=== PATIENT | female | born 1930 | race Caucasian/White ===

== ENCOUNTER 2017-09-23 18:18 | Inpatient (IN) | payer MEDICARE, MEDICAID ==
[~2017-09-23] VITALS: Ht 162.6 cm; Wt 68.0 kg
[~2017-09-23 18:18] MED LIST: ACETAMINOPHEN325 M1 ORAL; AZOPT10 ML OP; BENAZEPRIL HCL20 MG ORAL; BETIMOL5 M2 OP; BYSTOLIC 2.5MG2.5 MG ORAL; CAPOTEN ORAL; METRONIDAZOLE500 MG ORAL; NEXIUM40 MG ORAL; VANCOMYCIN1 GM/2502 IVPB; XARELTO10 MG ORAL
[2017-09-23] MEDS ORDERED: ISOPTO CARPINE1 DRO2 OP (18:33)
[2017-09-23] MEDS ORDERED: MULTIVITAMINS1 EAC8 ORAL (18:33)
[2017-09-23] MEDS ORDERED: TRAVATAN Z5 ML OP (18:33)
[2017-09-23] MEDS ORDERED: KEPPRA500 MG ORAL ×2 (18:33→21:15)
[2017-09-23] MEDS ORDERED: BENAZEPRIL HCL10 MG ORAL (18:33)
[2017-09-23] MEDS ORDERED: LINZESS145 MCG PO ×2 (18:33→21:22)
[2017-09-23] MEDS ORDERED: BETIMOL5 M2 OP (18:33)
[2017-09-23] MEDS ORDERED: VOLTAREN100 G1 TP (18:33)
[2017-09-23] MEDS ORDERED: KEPPRA500 M4 ORAL (18:33)
[2017-09-23] MEDS ORDERED: AZOPT10 ML OP (18:33)
[2017-09-23] MEDS ORDERED: ALPHAGAN P5 M2 OP (18:33)
[2017-09-23] MEDS ORDERED: TWOCAL HN LIQU237 ML PO (18:33)
[2017-09-23] MEDS ORDERED: Sodium Chloride 500ML 500 ML IV ONE (18:34)
[2017-09-23] MEDS ORDERED: ACETAMINOPHEN325 M1 ORAL (18:34)
[2017-09-23 18:45] VITALS: BP 101/64
[2017-09-23] MEDS ORDERED: Solu-MEDROL 125mg Inj IVP ONE (18:45)
--- NOTE | 2017-09-23 19:13 | Emergency Room Report ---
History of Present Illness General Chief Complaint: Dyspnea/Respdistress Source: EMS Present Illness HPI 86-year-old female presents ED for evaluation. Patient brought in by EMS for shortness of breath at her assisted today. nursing staff noted the patient was wheezing. Was given breathing treatments. Per EMS O2 sats were initially low but improved with breathing treatments. Upon arrival patient is refusing all breathing treatments. O2 sats improved. Denies fevers or chills. Denies chest pain. No other aggravating relieving factors. Denies any other associated symptoms Allergies: Coded Allergies: No Known Allergies (Unverified , 03/14/15) Patient History Past Medical History: seizures Past Surgical History: none Pertinent Family History: none Social History: Denies: smoking, alcohol use, drug use Last Menstrual Period: Unk Now: No Immunizations: UTD Reviewed Nursing Documentation: PMH: Agreed, PSxH: Agreed Nursing Documentation-PMH Hx Hypertension: Yes Hx Cancer: No Hx Gastrointestinal Problems: No Hx Seizures: Yes Review of Systems All Other Systems: negative except mentioned in HPI Physical Exam Vital Signs Date Time Temp Pulse Resp B/P (MAP) Pulse Ox O2 Delivery O2 Flow Rate FiO2 09/23/17 18:15 84 18 101/64 96 Room Air 09/23/17 18:45 98.3 98.3 Sp02 EP Interpretation: reviewed, normal General Appearance: no apparent distress, alert, GCS 15, non-toxic Head: normocephalic Eyes: bilateral eye normal inspection, bilateral eye PERRL ENT: normal ENT inspection Neck: normal inspection Respiratory: chest non-tender, lungs clear, normal breath sounds, speaking full sentences Cardiovascular #1: regular rate, rhythm, no edema Gastrointestinal: normal bowel sounds, non tender, soft, non-distended, no guarding, no rebound Rectal: deferred Genitourinary: no CVA tenderness Musculoskeletal: normal inspection Neurologic: alert, oriented x3, responsive, motor strength/tone normal, sensory intact, speech normal Psychiatric: normal inspection Skin: normal inspection Lymphatic: normal inspection Medical Decision Making Diagnostic Impression: Primary Impression: Respiratory distress ER Course Hospital Course 86-year-old F presenting to ED with SOB. wheezing Differential diagnoses include: Pneumonia, CHF exacerbation, pneumothorax, fluid overload Clinical course Patient placed on stretcher. On media monitor with stable vitals. After initial history and physical, I ordered nebulizer treatments. I ordered labs, IV fluids, EKG, chest x-ray, blood cultures, UA. Labs - no leukocytosis noted, hemoglobin/hematocrit stable, electrolytes okay, lactate okay, troponins negative CXR - no infiltrates EKG - NSR, no acute ischemic changes interpreted by me Overall patient improved. However still hypoxic to 80s on room air. Requiring O2. Case discussed with Dr. Carvajal and he agreed to the patient to his service for further care and support I feel this is a highly complex case requiring extensive working including EKG/ Rhythm strip, Xray/CT/US, Blood/urine lab work, repeat exams while in ED, and administration of strong opiates/narcotics for pain control, admission to hospital or close patient follow up. Diagnosis -respiratory distress Patient admitted to telemetry in serious condition Labs Test 09/23/17 19:06 White Blood Count 7.0 K/UL (4.8-10.8) Red Blood Count 4.20 M/UL (4.20-5.40) Hemoglobin 12.9 G/DL (12.0-16.0) Hematocrit 39.2 % (37.0-47.0) Mean Corpuscular Volume 93 FL (80-99) Mean Corpuscular Hemoglobin 30.7 PG (27.0-31.0) Mean Corpuscular Hemoglobin Concent 32.9 G/DL (32.0-36.0) Red Cell Distribution Width 12.3 % (11.6-14.8) Platelet Count 242 K/UL (150-450) Mean Platelet Volume 6.0 FL (6.5-10.1) Neutrophils (%) (Auto) 43.6 % (45.0-75.0) Lymphocytes (%) (Auto) 32.3 % (20.0-45.0) Monocytes (%) (Auto) 19.6 % (1.0-10.0) Eosinophils (%) (Auto) 3.4 % (0.0-3.0) Basophils (%) (Auto) 1.0 % (0.0-2.0) Sodium Level 138 MMOL/L (136-145) Potassium Level 4.1 MMOL/L (3.5-5.1) Chloride Level 104 MMOL/L (98-107) Carbon Dioxide Level 27 MMOL/L (21-32) Anion Gap 7 mmol/L (5-15) Blood Urea Nitrogen 21 mg/dL (7-18) Creatinine 0.8 MG/DL (0.55-1.30) Estimat Glomerular Filtration Rate mL/min (>60) Glucose Level 107 MG/DL (74-106) Lactic Acid Level 1.00 mmol/L (0.66-2.22) Calcium Level 9.2 MG/DL (8.5-10.1) Total Bilirubin 0.3 MG/DL (0.2-1.0) Aspartate Amino Transf (AST/SGOT) 21 U/L (15-37) Alanine Aminotransferase (ALT/SGPT) 13 U/L (12-78) Alkaline Phosphatase 65 U/L (46-116) Total Creatine Kinase 81 U/L (26-308) Creatine Kinase MB 1.3 NG/ML (0.0-3.6) Creatine Kinase MB Relative Index 1.6 Troponin I 0.001 ng/mL (0.000-0.056) Pro-B-Type Natriuretic Peptide 67 pg/mL (0-125) Total Protein 6.9 G/DL (6.4-8.2) Albumin 3.1 G/DL (3.4-5.0) Globulin 3.8 g/dL Albumin/Globulin Ratio 0.8 (1.0-2.7) EKG Diagnostic Results Rate: normal Rhythm: NSR ST Segments: no acute changes ASA given to the pt in ED: No Rhythm Strip Diag. Results EP Interpretation: yes Rhythm: NSR, no PVC's, no ectopy Chest X-Ray Diagnostic Results Chest X-Ray Diagnostic Results : Chest X-Ray Ordered: Yes # of Views/Limited/Complete: 1 View Indication: Shortness of Breath EP Interpretation: Yes Interpretation: no consolidation, no effusion, no pneumothorax, no acute cardiopulmonary disease Impression: No acute disease Electronically Signed by: Electronically signed by Gustabo Vargas MD Last Vital Signs Date Time Temp Pulse Resp B/P (MAP) Pulse Ox O2 Delivery O2 Flow Rate FiO2 09/23/17 18:45 84 18 Room Air 09/23/17 18:45 98.3 101/64 96 98.3 Status: improved Disposition: ADMITTED INPATIENT Condition: Serious Referrals: KORI VÁSQUEZ (PCP) GUSTABO VARGAS M.D. Sep 23, 2017 19:13
[2017-09-23 19:24] LABS: EOSINOPHILS % (AUTO) 3.4 % (0.0-3.0); HEMATOCRIT 39.2 % (37.0-47.0); HEMOGLOBIN 12.9 G/DL (12.0-16.0); LYMPHOCYTES % (AUTO) 32.3 % (20.0-45.0); MEAN CORPUSCULAR VOLUME 93 FL (80-99); MONOCYTES % (AUTO) 19.6 % (1.0-10.0); NEUTROPHILS % (AUTO) 43.6 % (45.0-75.0); PLATELET COUNT 242 K/UL (150-450); RED CELL DISTRIBUTION WIDTH 12.3 % (11.6-14.8)
[2017-09-23 19:38] LABS: ANION GAP 7 mmol/L (5-15); BLOOD UREA NITROGEN 21 mg/dL (7-18); CALCIUM 9.2 MG/DL (8.5-10.1); CARBON DIOXIDE 27 MMOL/L (21-32); CHLORIDE 104 MMOL/L (98-107); CREATININE 0.8 MG/DL (0.55-1.30); POTASSIUM 4.1 MMOL/L (3.5-5.1); SODIUM 138 MMOL/L (136-145)
[2017-09-23 19:53] LABS: ALANINE AMINOTRANSFERASE 13 U/L (12-78); ALBUMIN 3.1 G/DL (3.4-5.0); ALBUMIN/GLOBULIN RATIO 0.8 (1.0-2.7); ALKALINE PHOSPHATASE 65 U/L (46-116); ASPARTATE AMINO TRANSFERASE 21 U/L (15-37); BILIRUBIN,TOTAL 0.3 MG/DL (0.2-1.0); CKMB 1.3 NG/ML (0.0-3.6); CREATINE KINASE 81 U/L (26-308)
[2017-09-23 21:00] VITALS: BP 101/55
[2017-09-23] MEDS ORDERED: Promethazine/Codeine 5ml UD ORAL PRN (21:00)
[2017-09-23] MEDS ORDERED: Ketorolac 30mg Inj IV PRN (21:00)
[2017-09-23] MEDS ORDERED: Nitroglycerin Subl 0.4mg tab SL PRN (21:00)
[2017-09-23] MEDS ORDERED: Morphine Sulfate 4mg/ml Inj IVP PRN (21:00)
[2017-09-23] MEDS ORDERED: LORazepam Inj 2mg/ml 1ml IV PRN (21:00)
[2017-09-23] MEDS ORDERED: Albuterol/Ipratropium 3ml neb HHN PRN (21:00)
[2017-09-23] MEDS ORDERED: Heparin 5000 units/ml inj SUBQ SCH (22:00)
[2017-09-23] MEDS ORDERED: Piperacillin/Tazobactam 2.25 GM in D5W 55 ML IV SCH (22:00)
[2017-09-23] MEDS: Theophylline ER 100mg ORAL SCH (23:11)
[2017-09-23] MEDS: Zoysn 3.37gm in NS 100ML IVPB SCH (23:12)
[2017-09-24] VITALS: BP 108/75
[2017-09-24] MEDS: Solu-MEDROL 125mg Inj IV SCH ×3 (00:51→12:14)
[2017-09-24 04:00] VITALS: BP 111/50
[2017-09-24] MEDS: Zoysn 3.37gm in NS 100ML IVPB SCH (05:40)
[2017-09-24 08:00] VITALS: BP 126/60
[2017-09-24] MEDS: Theophylline ER 100mg ORAL SCH ×2 (08:40→20:47)
[2017-09-24] MEDS: Benazepril 10mg tab ORAL SCH (08:40)
[2017-09-24] MEDS: Xarelto 15mg tab ORAL SCH (08:42)
--- NOTE | 2017-09-24 10:26 | Diagnostic Imaging Report ---
Indication: Shortness of breath Technique: XRAY Chest 1v Comparison: 11/14/2014 Findings: Limited exam with low lung volumes and obscuration of portions of the apices by patient's chin. Heart size and ultrasound contours appear stable. Aorta is tortuous. Apparent mild pulmonary vascular congestion, possibly artifactually exaggerated due to low lung volumes. There is blunting of the left costophrenic sulcus and streaky left basilar opacities. No pneumothorax. Osteopenia and degenerative change of the spine with compression deformities of lower thoracic/upper lumbar vertebral bodies -seen previously. IMPRESSION: Limited exam. Blunting of the left costophrenic sulcus and minimal streaky left basilar opacities. Findings may related to small pleural effusion and atelectasis. Possibility of developing pneumonia not entirely excluded. Correlation and follow-up exam recommended. Question mild central pulmonary vascular congestion, possibly exaggerated due to low lung volumes. Compression deformities of the lower thoracic/upper lumbar spine, grossly similar to prior exam. Lateral view or dedicated spine radiographs would provide a better assessment for interval change. Study obtained via the emergency department however patient admitted to the hospital at time of dictation of the final report.
[2017-09-24 12:01] VITALS: BP 122/76
--- NOTE | 2017-09-24 12:46 | Consultation ---
Consult Note Consult Note ID DIC # [id number] ANNIE POTTER M.D. Sep 24, 2017 12:46
--- NOTE | 2017-09-24 13:05 | Consultation ---
History of Present Illness General Date patient seen: Sep 23, 2017 Chief Complaint: Dyspnea/Respdistress Present Illness HPI 86-year-old female with hx of CVA, CHF, htn, right sided weakness presented to ED for evaluationof shortness of breath . the patient was wheezing. Was given breathing treatments. Per EMS O2 sats were initially low but improved with breathing treatments. Upon arrival ot ER patient is refusing all breathing treatments. O2 saturation improved. Denies fevers or chills. Denies chest pain. No other aggravating relieving factors. Denies any other associated symptoms Allergies: Coded Allergies: No Known Allergies (Unverified , 03/14/15) Medication History Scheduled Benazepril Hcl* (Benazepril Hcl*), 10 MG ORAL DAILY, (Reported) Brinzolamide (Azopt), 10 ML OP DAILY, (Reported) Bysto (Bystolic), 2.5 MG ORAL DAILY, (Reported) Levetiracetam (Keppra), 500 MG ORAL HS, (Reported) Levetiracetam (Keppra), 250 MG ORAL DAILY, (Reported) Linaclotide (Linzess), 145 MCG PO ACBREAKFAST, (Reported) Multivitamin With Minerals (Multivitamins With Minerals*), 1 TAB ORAL DAILY, ( Reported) Rivaroxaban (Xarelto*), 15 MG ORAL DAILY, (Reported) Scheduled PRN Acetaminophen* (Acetaminophen 325MG Tablet*), 650 MG ORAL Q6H PRN for Mild Pain/ Temp > 100.5 Miscellaneous Medications Brimonidine Tartrate (Alphagan P), 5 ML OP, (Reported) Diclofenac Sodium (Voltaren), 100 GM TP, (Reported) Nut.sup,Spec.frm,L-Fr,Iron/Fos (Twocal Hn Liquid), 237 ML PO, (Reported) Pilocarpine (Pilocarpine HCl), 1 DROP OP, (Reported) Timolol (Betimol), 5 ML OP, (Reported) Travoprost (Travatan Z), 5 ML OP, (Reported) Discontinued Medications Captopril (Captopril), 25 MG ORAL Q6HR PRN for To Patient Comfort Discontinued Reason: Pt stopped taking med Esomeprazole Magnesium (Nexium), 40 MG ORAL DAILY, (Reported) Discontinued Reason: Pt stopped taking med Metronidazole* (Flagyl*), 500 MG ORAL EVERY 8 HOURS, (Reported) Discontinued Reason: Pt stopped taking med Vancomycin Hcl/D5w (Vancomycin-D5w 1 G/250 Ml), 1.25 GM IVPB Q24H, (Reported) Discontinued Reason: Pt stopped taking med Patient History Healthcare decision maker N Resuscitation status Full Code Advanced Directive on File No Past Medical/Surgical History Past Medical/Surgical History: (1) Hypertension (2) Cerebrovascular accident (CVA) Review of Systems Respiratory: Reports: shortness of breath, wheezing All Other Systems: negative except mentioned in HPI Physical Exam General Appearance: WD/WN Lines, tubes and drains: peripheral HEENT: normocephalic, atraumatic Neck: non-tender, normal alignment Respiratory/Chest: chest wall non-tender, lungs clear, expiratory wheezing Breasts: no masses Cardiovascular/Chest: normal peripheral pulses Genitourinary/Rectal: normal genital exam Extremities: normal range of motion, normal inspection, non-pitting Last 24 Hour Vital Signs Date Time Temp Pulse Resp B/P (MAP) Pulse Ox O2 Delivery O2 Flow Rate FiO2 09/24/17 12:01 96.6 63 18 122/76 96 Nasal Cannula 2.0 96.6 09/24/17 12:00 62 09/24/17 08:40 126/60 09/24/17 08:00 96.1 69 18 126/60 95 Nasal Cannula 2.0 96.1 09/24/17 08:00 66 09/24/17 04:00 97.3 64 18 111/50 95 Nasal Cannula 2.0 97.3 09/24/17 04:00 59 09/24/17 00:00 97.5 61 12 108/75 95 Nasal Cannula 2.0 97.5 09/24/17 00:00 66 09/23/17 21:30 98.3 72 21 101/55 94 Nasal Cannula 2.0 98.3 09/23/17 21:00 72 21 101/55 94 Nasal Cannula 2.0 09/23/17 18:45 84 18 Room Air 09/23/17 18:45 98.3 18 101/64 96 Room Air 98.3 09/23/17 18:15 84 18 101/64 96 Room Air Intake and Output 09/23/17 09/24/17 19:00 07:00 Intake Total 0 ml 78 ml Balance 0 ml 78 ml Intake Oral 0 ml 0 ml IV Total 78 ml Laboratory Tests Test 09/23/17 19:06 White Blood Count 7.0 K/UL (4.8-10.8) Red Blood Count 4.20 M/UL (4.20-5.40) Hemoglobin 12.9 G/DL (12.0-16.0) Hematocrit 39.2 % (37.0-47.0) Mean Corpuscular Volume 93 FL (80-99) Mean Corpuscular Hemoglobin 30.7 PG (27.0-31.0) Mean Corpuscular Hemoglobin Concent 32.9 G/DL (32.0-36.0) Red Cell Distribution Width 12.3 % (11.6-14.8) Platelet Count 242 K/UL (150-450) Mean Platelet Volume 6.0 FL (6.5-10.1) L Neutrophils (%) (Auto) 43.6 % (45.0-75.0) L Lymphocytes (%) (Auto) 32.3 % (20.0-45.0) Monocytes (%) (Auto) 19.6 % (1.0-10.0) H Eosinophils (%) (Auto) 3.4 % (0.0-3.0) H Basophils (%) (Auto) 1.0 % (0.0-2.0) Sodium Level 138 MMOL/L (136-145) Potassium Level 4.1 MMOL/L (3.5-5.1) Chloride Level 104 MMOL/L (98-107) Carbon Dioxide Level 27 MMOL/L (21-32) Anion Gap 7 mmol/L (5-15) Blood Urea Nitrogen 21 mg/dL (7-18) H Creatinine 0.8 MG/DL (0.55-1.30) Estimat Glomerular Filtration Rate mL/min (>60) Glucose Level 107 MG/DL (74-106) H Lactic Acid Level 1.00 mmol/L (0.66-2.22) Calcium Level 9.2 MG/DL (8.5-10.1) Total Bilirubin 0.3 MG/DL (0.2-1.0) Aspartate Amino Transf (AST/SGOT) 21 U/L (15-37) Alanine Aminotransferase (ALT/SGPT) 13 U/L (12-78) Alkaline Phosphatase 65 U/L (46-116) Total Creatine Kinase 81 U/L (26-308) Creatine Kinase MB 1.3 NG/ML (0.0-3.6) Creatine Kinase MB Relative Index 1.6 Troponin I 0.001 ng/mL (0.000-0.056) Pro-B-Type Natriuretic Peptide 67 pg/mL (0-125) Total Protein 6.9 G/DL (6.4-8.2) Albumin 3.1 G/DL (3.4-5.0) L Globulin 3.8 g/dL Albumin/Globulin Ratio 0.8 (1.0-2.7) L Microbiology Date/Time Source Procedure Growth Status 09/23/17 19:27 Nasal Nares Influenza Types A,B Antigen ([facility]) - Final Complete Height (Feet): 5 Height (Inches): 4.00 Weight (Pounds): 180 Medications Current Medications Medications (Trade) Dose Ordered Sig/Carmen Route PRN Reason Start Time Stop Time Status Last Admin Dose Admin Albuterol/ Ipratropium (Albuterol/ Ipratropium) 3 ml Q4H PRN HHN dyspnea 09/23/17 21:00 09/28/17 20:59 Benazepril HCl (Lotensin) 10 mg DAILY ORAL 09/24/17 09:00 10/24/17 08:59 09/24/17 08:40 Dextrose (Dextrose 50%) STAT PRN IV Hypoglycemia 09/23/17 21:00 10/23/17 20:59 Ketorolac Tromethamine (Toradol 30mg) 30 mg Q8H PRN IV moderate pain 4-6 09/23/17 21:00 09/28/17 20:59 Levetiracetam (Keppra) 250 mg DAILY ORAL 09/24/17 09:00 10/24/17 08:59 09/24/17 08:41 Levetiracetam (Keppra) 500 mg QHS ORAL 09/23/17 22:30 10/23/17 22:29 09/23/17 23:11 Lorazepam (Ativan 2mg/ml 1ml) 0.5 mg Q4H PRN IV For Anxiety 09/23/17 21:00 09/30/17 20:59 Methylprednisolone Sodium Succinate (Solu-MEDROL) 60 mg EVERY 6 HOURS IV 09/24/17 00:30 10/24/17 00:29 09/24/17 12:14 Morphine Sulfate (Morphine Sulfate) 2 mg Q4H PRN IVP severe pain 7-10 09/23/17 21:00 09/30/17 20:59 Nitroglycerin (Ntg) 0.4 mg Q5M X 3 DOSES PRN SL Prn Chest Pain 09/23/17 21:00 10/23/17 20:59 Ondansetron HCl (Zofran) 4 mg Q6H PRN IVP Nausea & Vomiting 09/23/17 21:00 10/23/17 20:59 Oseltamivir Phosphate (Tamiflu) 30 mg Q12HR ORAL 09/23/17 22:30 09/28/17 22:29 09/24/17 08:41 Piperacillin Sod/ Tazobactam Sod 3.375 gm/Sodium Chloride 110 ml @ 27.5 mls/hr EVERY 8 HOURS IVPB 09/23/17 22:30 09/28/17 22:29 09/24/17 05:40 Promethazine HCl/ Codeine (Phenergan with Codeine) 5 ml Q6H PRN ORAL cough 09/23/17 21:00 10/23/17 20:59 Rivaroxaban (Xarelto) 15 mg DAILY ORAL 09/24/17 09:00 10/24/17 08:59 09/24/17 08:42 Temazepam (Restoril) 15 mg HSPRN PRN ORAL Insomnia 09/23/17 21:00 09/30/17 20:59 Theophylline (Danilo-Dur) 100 mg EVERY 12 HOURS ORAL 09/23/17 22:00 10/23/17 21:59 09/24/17 08:40 Assessment/Plan Problem List: (1) Respiratory distress ICD Codes: R06.03 - Acute respiratory distress SNOMED: 237857986 (2) Bronchitis ICD Codes: J40 - Bronchitis, not specified as acute or chronic SNOMED: 57768893 (3) Viral syndrome ICD Codes: B34.9 - Viral infection, unspecified SNOMED: 71488017, 788542494 (4) Hypertension ICD Codes: I10 - Essential (primary) hypertension SNOMED: 58653054 (5) Cerebrovascular accident (CVA) ICD Codes: I63.9 - Cerebral infarction, unspecified SNOMED: 565103935 Assessment/Plan respiratory treatment check sputum echo cardioac evaluation CXR was negative short course of steroids ID evaluation. MATTHEW AARON Sep 24, 2017 13:05
--- NOTE | 2017-09-24 13:07 | Pulmonology Progress Note ---
Assessment/Plan Problems: (1) Respiratory distress (2) Bronchitis (3) Viral syndrome (4) Hypertension (5) Cerebrovascular accident (CVA) Assessment/Plan improving afebrile check sputum, echo, labs taper sterids continue abx ID evaluation appreciated. Subjective ROS Limited/Unobtainable: No Interval Events: feeling better Constitutional: Reports: no symptoms HEENT: Repors: no symptoms Respiratory: Reports: no symptoms Allergies: Coded Allergies: No Known Allergies (Unverified , 03/14/15) Objective Last 24 Hour Vital Signs Date Time Temp Pulse Resp B/P (MAP) Pulse Ox O2 Delivery O2 Flow Rate FiO2 09/24/17 12:01 96.6 63 18 122/76 96 Nasal Cannula 2.0 96.6 09/24/17 12:00 62 09/24/17 08:40 126/60 09/24/17 08:00 96.1 69 18 126/60 95 Nasal Cannula 2.0 96.1 09/24/17 08:00 66 09/24/17 04:00 97.3 64 18 111/50 95 Nasal Cannula 2.0 97.3 09/24/17 04:00 59 09/24/17 00:00 97.5 61 12 108/75 95 Nasal Cannula 2.0 97.5 09/24/17 00:00 66 09/23/17 21:30 98.3 72 21 101/55 94 Nasal Cannula 2.0 98.3 09/23/17 21:00 72 21 101/55 94 Nasal Cannula 2.0 09/23/17 18:45 84 18 Room Air 09/23/17 18:45 98.3 18 101/64 96 Room Air 98.3 09/23/17 18:15 84 18 101/64 96 Room Air Intake and Output 09/23/17 09/24/17 19:00 07:00 Intake Total 0 ml 78 ml Balance 0 ml 78 ml Intake Oral 0 ml 0 ml IV Total 78 ml Objective General Appearance: WD/WN Lines, tubes and drains: peripheral HEENT: normocephalic, atraumatic Neck: non-tender, normal alignment Respiratory/Chest: chest wall non-tender, lungs clear, expiratory wheezing Breasts: no masses Cardiovascular/Chest: normal peripheral pulses Genitourinary/Rectal: normal genital exam Extremities: normal range of motion, normal inspection, non-pitting Microbiology Date/Time Source Procedure Growth Status 09/23/17 19:27 Nasal Nares Influenza Types A,B Antigen ([facility]) - Final Complete Laboratory Tests 09/23/17 19:06: White Blood Count 7.0, Red Blood Count 4.20, Hemoglobin 12.9, Hematocrit 39.2, Mean Corpuscular Volume 93, Mean Corpuscular Hemoglobin 30.7, Mean Corpuscular Hemoglobin Concent 32.9, Red Cell Distribution Width 12.3, Platelet Count 242, Mean Platelet Volume 6.0L, Neutrophils (%) (Auto) 43.6L, Lymphocytes (%) (Auto) 32.3, Monocytes (%) (Auto) 19.6H, Eosinophils (%) (Auto) 3.4H, Basophils (%) ( Auto) 1.0, Sodium Level 138, Potassium Level 4.1, Chloride Level 104, Carbon Dioxide Level 27, Anion Gap 7, Blood Urea Nitrogen 21H, Creatinine 0.8, Estimat Glomerular Filtration Rate , Glucose Level 107H, Lactic Acid Level 1.00, Calcium Level 9.2, Total Bilirubin 0.3, Aspartate Amino Transf (AST/SGOT) 21, Alanine Aminotransferase (ALT/SGPT) 13, Alkaline Phosphatase 65, Total Creatine Kinase 81, Creatine Kinase MB 1.3, Creatine Kinase MB Relative Index 1.6, Troponin I 0.001, Pro-B-Type Natriuretic Peptide 67, Total Protein 6.9, Albumin 3.1L, Globulin 3.8, Albumin/Globulin Ratio 0.8L Current Medications Medications (Trade) Dose Ordered Sig/Carmen Route PRN Reason Start Time Stop Time Status Last Admin Dose Admin Albuterol/ Ipratropium (Albuterol/ Ipratropium) 3 ml Q4H PRN HHN dyspnea 09/23/17 21:00 09/28/17 20:59 Benazepril HCl (Lotensin) 10 mg DAILY ORAL 09/24/17 09:00 10/24/17 08:59 09/24/17 08:40 Dextrose (Dextrose 50%) STAT PRN IV Hypoglycemia 09/23/17 21:00 10/23/17 20:59 Ketorolac Tromethamine (Toradol 30mg) 30 mg Q8H PRN IV moderate pain 4-6 09/23/17 21:00 09/28/17 20:59 Levetiracetam (Keppra) 250 mg DAILY ORAL 09/24/17 09:00 10/24/17 08:59 09/24/17 08:41 Levetiracetam (Keppra) 500 mg QHS ORAL 09/23/17 22:30 10/23/17 22:29 09/23/17 23:11 Lorazepam (Ativan 2mg/ml 1ml) 0.5 mg Q4H PRN IV For Anxiety 09/23/17 21:00 09/30/17 20:59 Methylprednisolone Sodium Succinate (Solu-MEDROL) 60 mg EVERY 6 HOURS IV 09/24/17 00:30 10/24/17 00:29 09/24/17 12:14 Morphine Sulfate (Morphine Sulfate) 2 mg Q4H PRN IVP severe pain 7-10 09/23/17 21:00 09/30/17 20:59 Nitroglycerin (Ntg) 0.4 mg Q5M X 3 DOSES PRN SL Prn Chest Pain 09/23/17 21:00 10/23/17 20:59 Ondansetron HCl (Zofran) 4 mg Q6H PRN IVP Nausea & Vomiting 09/23/17 21:00 10/23/17 20:59 Oseltamivir Phosphate (Tamiflu) 30 mg Q12HR ORAL 09/23/17 22:30 09/28/17 22:29 09/24/17 08:41 Piperacillin Sod/ Tazobactam Sod 3.375 gm/Sodium Chloride 110 ml @ 27.5 mls/hr EVERY 8 HOURS IVPB 09/23/17 22:30 09/28/17 22:29 09/24/17 05:40 Promethazine HCl/ Codeine (Phenergan with Codeine) 5 ml Q6H PRN ORAL cough 09/23/17 21:00 10/23/17 20:59 Rivaroxaban (Xarelto) 15 mg DAILY ORAL 09/24/17 09:00 10/24/17 08:59 09/24/17 08:42 Temazepam (Restoril) 15 mg HSPRN PRN ORAL Insomnia 09/23/17 21:00 09/30/17 20:59 Theophylline (Danilo-Dur) 100 mg EVERY 12 HOURS ORAL 09/23/17 22:00 10/23/17 21:59 09/24/17 08:40 MATTHEW AARON Sep 24, 2017 13:06
--- NOTE | 2017-09-24 13:45 | Cardiology Report ---
APPROVED REPORT EXAM: Two-dimensional and M-mode echocardiogram with Doppler and color Doppler. INDICATION LV FUNCTION M-Mode DIMENSIONS IVSd1.2 (0.7-1.1cm)Left Atrium (MM)3.3 (1.6-4.0cm) LVDd3.6 (3.5-5.6cm)Aortic Root3.3 (2.0-3.7cm) PWd1.2 (0.7-1.1cm)Aortic Cusp Exc.1.9 (1.5-2.0cm) IVSs1.7 cm LVDs2.3 (2.5-4.0cm) PWs1.3 cm Technically difficult study due to patient resistance. Normal left ventricular chamber size, systolic function and wall motion. Left ventricular ejection fraction estimated to be 60-65%. Mild left ventricular hypertrophy by 2-D. No evidence of pericardial effusion. All other cardiac chamber sizes are within normal limits. Focal aortic valve sclerosis with adequate cusp excursion, Thickened mitral valve leaflets with normal excursion. Mitral annulus and aortic root calcification. Normal pulmonic valve structure. Normal tricuspid valve structure. IVC dilated at 2.4 cm with physiologic collapse suggestive of increased RA pressure. A color flow and spectral Doppler study was performed and revealed: No aortic regurgitation. Trace mitral regurgitation. Mitral diastolic velocities suggest reduced left ventricular relaxation c/w mild LV diastolic dysfunction (Grade I ). Trace to Mild tricuspid regurgitation. Tricuspid systolic velocities suggests peak right ventricular systolic pressure of 28 mmHg, No Pulmonic regurgitation present.
--- NOTE | 2017-09-24 15:06 | Cardiology Report ---
APPROVED REPORT EKG Measurement Heart [id number] Normal sinus rhythm Normal ECG
[2017-09-24 16:00] VITALS: BP 108/66
--- NOTE | 2017-09-24 19:40 | Cardiology Progress Note ---
Assessment/Plan Assessment/Plan [id number] no evidence for chf or coronary syndrome trop in am to snf soon from cardiac veiw point Objective Last 24 Hour Vital Signs Date Time Temp Pulse Resp B/P (MAP) Pulse Ox O2 Delivery O2 Flow Rate FiO2 09/24/17 16:00 65 09/24/17 16:00 97.7 62 18 108/66 93 Room Air 97.7 09/24/17 12:01 96.6 63 18 122/76 96 Nasal Cannula 2.0 96.6 09/24/17 12:00 62 09/24/17 08:40 126/60 09/24/17 08:00 96.1 69 18 126/60 95 Nasal Cannula 2.0 96.1 09/24/17 08:00 66 09/24/17 04:00 97.3 64 18 111/50 95 Nasal Cannula 2.0 97.3 09/24/17 04:00 59 09/24/17 00:00 97.5 61 12 108/75 95 Nasal Cannula 2.0 97.5 09/24/17 00:00 66 09/23/17 21:30 98.3 72 21 101/55 94 Nasal Cannula 2.0 98.3 09/23/17 21:00 72 21 101/55 94 Nasal Cannula 2.0 Intake and Output 09/23/17 09/24/17 19:00 07:00 Intake Total 0 ml 78 ml Balance 0 ml 78 ml Intake Oral 0 ml 0 ml IV Total 78 ml Microbiology Date/Time Source Procedure Growth Status 09/23/17 19:27 Nasal Nares Influenza Types A,B Antigen ([facility]) - Final Complete BENOIT SUTTON Sep 24, 2017 19:40
[2017-09-24 20:00] VITALS: BP 109/68
--- NOTE | 2017-09-24 21:45 | History and Physical Report ---
DATE OF ADMISSION: 09/23/2017 CHIEF COMPLAINT: The patient is an 86-year-old white female, Ecuadorean speaking, who presents with a chief complaint of shortness of breath. HISTORY OF PRESENT ILLNESS: The patient herself is mostly Ecuadorean speaking. The patient's is at the bedside. 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 The patient is a resident of [facility]. The patient began to experience cough, fever, and, chills on 09/23/2017. The patient was transported to [facility]. The patient was admitted for cough and fever to rule out pneumonia. PAST MEDICAL HISTORY: Significant for, 1. Glaucoma. 2. Seizure disorder. 3. Hypertension. 4. Right lower extremity deep venous thrombosis. PAST SURGICAL HISTORY: Significant for exploratory laparotomy for unknown reason. CURRENT MEDICATIONS: 1. Keppra 250 mg p.o. daily. 2. Keppra 500 mg p.o. at bedtime. 3. Pilocarpine 2% 1 drop to both eyes daily. 4. Alphagan 0.15% 1 drop in both eyes daily. 5. Azopt 1% one drop to both eyes daily. 6. Travatan 0.004% both eyes daily. 7. Timolol 0.5% to both eyes daily. 8. Xarelto 15 mg p.o. daily. 9. Benazepril 10 mg p.o. daily. ALLERGIES: No known drug allergies. SOCIAL HISTORY: The patient lives at [facility]. The patient is . The patient's is at the bedside. The patient denies tobacco or alcohol use. REVIEW OF SYSTEMS: CONSTITUTIONAL: The patient denies weight loss or weight gain. The patient does complain of subjective fevers and chills. HEENT: The patient denies ear or throat pain. The patient denies headache. CARDIOVASCULAR: The patient denies palpitations or chest pain. CHEST: The patient complains of cough as above. The patient denies wheeze. ABDOMEN: The patient denies nausea, vomiting, diarrhea, or constipation. GENITOURINARY: The patient denies dysuria or increased frequency of urination. NEUROMUSCULAR: The patient denies generalized weakness. The patient does have a history of seizures. PHYSICAL EXAMINATION: VITAL SIGNS: Temperature 97.5, respirations 12, pulse 61 to 66, and blood pressure 108/75. GENERAL: The patient is a well-developed and well-nourished white female, in no apparent distress. HEENT: Eyes, pupils equal and responsive to light and accommodation. Extraocular movements are intact. NECK: Supple without lymphadenopathy. CHEST: Few wheezes bilaterally. Otherwise, clear to auscultation without wheezes or rales. CARDIOVASCULAR: Regular rhythm and rate. S1 and S2 are normal without murmurs, rubs, or gallops. ABDOMEN: Soft, nontender, and nondistended. Positive bowel sounds. No evidence of hepatosplenomegaly. Currently, no rebound or guarding noted. EXTREMITIES: Negative for clubbing, cyanosis, or edema. RECTAL/GENITAL: Refused. NEUROLOGIC: Cranial nerves II through XII are grossly intact without focal deficits. Motor strength is 5/5 bilaterally. Deep tendon reflexes are 2+ plantar. LABORATORY STUDIES: WBC 7.3, hemoglobin 12.9, hematocrit 39.2, and platelets 242,000. Sodium 138, potassium 4.1, chloride 104, CO2 27, BUN 21, creatinine 0.8, and glucose 107. Chest x-ray revealed blunting of the left costophrenic sulcus with streaky left basilar opacities. ASSESSMENT: This is an 86-year-old white female. 1. Shortness of breath. 2. Left basilar pneumonia. 3. Seizure disorder. 4. Hypertension. 5. Glaucoma. 6. History of right lower extremity deep venous thrombosis. TREATMENT: 1. Left pneumonia/shortness of breath. A Pulmonary consultation was obtained with Dr. Bipin Arcos. The patient has been placed empirically on intravenous Zosyn. We will follow recommendations of Pulmonary. 2. Seizure disorder. Continue Keppra as above. 3. Hypertension. Continue benazepril as above. 4. Glaucoma. Continue all eye drops as ordered. 5. History of right lower extremity deep venous thrombosis. Continue Xarelto as above. Esequiel Mcleod M.D. DR: CATHY JOB#: [id number] CC:
--- NOTE | 2017-09-24 22:15 | Consultation ---
DATE OF CONSULTATION: 09/24/2017 INFECTIOUS DISEASES CONSULTATION CONSULTING PHYSICIAN: Pranav Goel M.D. REQUESTING PHYSICIAN: Esequiel Mcleod M.D. REASON FOR CONSULTATION: Evaluation of the patient for pneumonia, antibiotics management. HISTORY OF PRESENT ILLNESS: The patient is an 86-year-old female who lives in assisted living [place] [facility] who was transferred to this medical center for cough and shortness of breath. The patient was admitted with impression of pneumonia. An Infectious Diseases consultation has been requested for further evaluation of the patient's antibiotic management. PAST MEDICAL HISTORY: 1. Seizure disorder. 2. CVA with right-sided weakness. 3. CHF. 4. Hyperlipidemia. 5. Hypertension. 6. History of right shoulder fracture. MEDICATIONS: Solu-Medrol, Tamiflu and Zosyn. ALLERGIES: No known drug allergies. SOCIAL HISTORY: No history of alcohol, drug abuse, or smoking. FAMILY HISTORY: Not contributing. REVIEW OF SYSTEMS: HEENT: No recent change in vision or hearing. PULMONARY: Cough with sputum production. CARDIOVASCULAR: No chest pain or palpitation. GASTROINTESTINAL/ABDOMEN: No nausea or vomiting. GENITOURINARY: No dysuria. MUSCULOSKELETAL: No pain in extremity. PHYSICAL EXAMINATION: VITAL SIGNS: Temperature 96.6 degrees, pulse 86, respiratory rate 18, and blood pressure 123/76. HEENT: No conjunctiva. No icterus. NECK: No lymphadenopathy. CHEST: Coarse breathing sounds. HEART: S1 and S2. ABDOMEN: Soft and nontender. EXTREMITIES: No cyanosis . NEUROLOGIC: Awake. LABORATORY AND DIAGNOSTIC DATA: White blood cells 7, hemoglobin 12 and platelets 242. UA shows 10 to 15 red blood cells and 0 to 2 white blood cells. BUN 31 and creatinine 0.8. ALT, AST, and alkaline phosphatase are unremarkable. Influenza A and B negative. Chest x-ray showed blunting of left costophrenic sulcus and streaking of left basilar opacities. ASSESSMENT: The patient is an 86-year-old female with; 1. Cough, shortness of breath, pneumonia/bronchitis. 2. Afebrile. 3. Normal white blood cells. Influenza A/B negative. PLAN: 1. We will change antibiotics to Levaquin. 2. Monitor CBC. 3. Monitor BMP. 4. Monitor cultures (blood, sputum). 5. Monitor chest x-ray. 6. Based on the patient's clinical course and laboratories, we will do further recommendations. Thank you, for following me to participate in the care of this patient. I will follow the patient with you during this hospitalization. Pranav Goel M.D. DR: MARCIANO JOB#: [id number] CC:
[2017-09-25] VITALS: BP 111/62
--- NOTE | 2017-09-25 01:30 | Consultation ---
DATE OF CONSULTATION: 09/24/2017 CARDIOLOGY CONSULTATION CONSULTING PHYSICIAN: Anurag Ward M.D. REFERRING PHYSICIAN: Agus Carvajal M.D. REASON FOR REFERRAL: Shortness of breath. 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 She was brought to the emergency room at [facility] because of complaints about shortness of breath oxygen saturation, which responded to breathing treatments provided by the paramedics. Subsequently, when she arrived to the emergency room here at [place], she refused all breathing treatments. Oxygen saturations were fine. She is a very poor historian, therefore, information is very limited and is obtained from review of the patient's present chart and [facility] records. She does not appear to have any chest pains on questioning or abdominal pain or left arm pain or back pain or shortness of breath. PAST MEDICAL HISTORY: Positive for history of hypertension, osteoporosis, degenerative spine disease, history of meningioma that was resected in 2014, complicated right lower extremity deep venous thrombosis, underwent IVC placement and apparently IVC filter may have been removed subsequently, history of pneumonia, history of urinary tract infections, systemic hypertension, obesity, hyperlipidemia, osteoporosis, degenerative disk disease, chronic bilateral lower extremity, lymphedema, and dementia. SOCIAL HISTORY: The patient resides at a convalescent facility. 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 She is from [facility]. No history of alcohol or drugs or smoking. REVIEW OF SYSTEMS: GASTROINTESTINAL: She denies any nausea, vomiting, or diarrhea. GENITOURINARY: Negative. PULMONARY: She denies. CONSTITUTIONAL: She denies. CARDIAC: As mentioned in the HPI. PHYSICAL EXAMINATION: GENERAL: Shows her to be an elderly female, overweight, and in no respiratory distress. NECK: Supple. She is lying down actually flat. LUNGS: Clear to auscultation and percussion. CARDIAC: S1 is normal. S2 is normal. Regular rate and rhythm. No heaves, thrills, or gallops noted. ABDOMEN: Soft and nontender. Positive bowel sounds. EXTREMITIES: There is no clubbing, cyanosis, nor is there any edema. NEUROLOGICAL: She is awake, alert, responsive, in no respiratory distress. LABORATORY AND DIAGNOSTIC DATA: White count of 7, hemoglobin 12.9, and platelet count is 242,000. Sodium is 138, potassium 4.1, chloride 104, bicarbonate 27, BUN 21, creatinine 0.8, and glucose of 107. Lactic acid of 1.0. Troponin of 0.001. ProBNP was only 67. Albumin of 3.1. No other abnormalities noted. X-rays performed in the emergency room show blunting of left costophrenic sulcus, minimal streaky left basilar opacity, findings may be related to small pleural effusion and atelectasis. Mild central pulmonary vascular congestion possibly exaggerated due to low lung volumes. Deformities of thoracic and upper lumbar spine similar to prior studies. The patient's electrocardiogram performed by the paramedics shows normal sinus rhythm and normal QRS axis. No ST or T-wave abnormalities of significant degrees. ASSESSMENT AND PLAN: 1. Questionable bronchospasm from the convalescent facility seems to have resolved. 2. Obesity. 3. History of deep venous thrombosis post meningioma resection. 4. History of meningioma that was resected. 5. Hypertension. 6. Hyperlipidemia. 7. Dementia. Dr. Carvajal, this patient was seen in cardiac consultation. The patient's cardiac enzymes are negative so far. ProBNP was normal, which speaks against the evidence of congestive heart failure. She has had an echocardiogram that was performed today. The echocardiogram shows normal left ventricular systolic function with ejection fraction of 60% to 65%. Mild diastolic relaxation abnormality. No valvular dysfunction has been noted on that EKG. She has no signs or symptoms of congestive heart failure or coronary syndrome on her examination at this time. She is refusing oxygen even if that is provided by the nursing staff. She has no further indications for any evaluation from the cardiac point of view although repeat cardiac enzymes will be ordered for tomorrow morning. Her blood pressure is 108/66 with a heart rate of 62 and temperature 97 degrees, and she is anywhere between 93% on room air and 96% on 2 L nasal cannula oxygenating. Remainder of the workup as per Dr. Arcos, who is seeing the patient in Pulmonary consultation. Anurag Ward M.D. DR: MARILEE JOB#: [id number] CC:
[2017-09-25 04:00] VITALS: BP 114/61
[2017-09-25 07:18] LABS: BASOPHILS % (AUTO) 0.3 % (0.0-2.0); EOSINOPHILS % (AUTO) 0.1 % (0.0-3.0); HEMATOCRIT 34.5 % (37.0-47.0); HEMOGLOBIN 11.7 G/DL (12.0-16.0); LYMPHOCYTES % (AUTO) 21.3 % (20.0-45.0); MEAN CORPUSCULAR VOLUME 93 FL (80-99); MONOCYTES % (AUTO) 13.7 % (1.0-10.0); NEUTROPHILS % (AUTO) 64.7 % (45.0-75.0); PLATELET COUNT 256 K/UL (150-450); RED BLOOD COUNT 3.71 M/UL (4.20-5.40); RED CELL DISTRIBUTION WIDTH 12.2 % (11.6-14.8); WHITE BLOOD COUNT 9.8 K/UL (4.8-10.8)
[2017-09-25 07:23] LABS: ALANINE AMINOTRANSFERASE 18 U/L (12-78); ALKALINE PHOSPHATASE 60 U/L (46-116); ANION GAP 7 mmol/L (5-15); ASPARTATE AMINO TRANSFERASE 15 U/L (15-37); BILIRUBIN,TOTAL 0.3 MG/DL (0.2-1.0); BLOOD UREA NITROGEN 28 mg/dL (7-18); CALCIUM 8.9 MG/DL (8.5-10.1); CARBON DIOXIDE 28 MMOL/L (21-32); CHLORIDE 107 MMOL/L (98-107); CREATININE 0.8 MG/DL (0.55-1.30); POTASSIUM 3.8 MMOL/L (3.5-5.1); SODIUM 142 MMOL/L (136-145)
[2017-09-25 08:00] VITALS: BP 137/85
[2017-09-25] MEDS: Benazepril 10mg tab ORAL SCH (08:32)
[2017-09-25] MEDS: Theophylline ER 100mg ORAL SCH ×2 (08:32→20:27)
[2017-09-25] MEDS: Xarelto 15mg tab ORAL SCH (08:33)
[2017-09-25] MEDS ORDERED: Solu-MEDROL 125mg Inj IV SCH (09:00)
--- NOTE | 2017-09-25 11:47 | Infectious Diseases Prog Note ---
Assessment/Plan Assessment/Plan ASSESSMENT: The patient is an 86-year-old female with; Cough, shortness of breath, pneumonia/bronchitis. Afebrile. Normal white blood cells Influenza A/B negative. Influenza A and B negative Chest x-ray: left costophrenic sulcus and streaking of left basilar opacities. Seizure disorder. CVA with right-sided weakness. CHF. Hyperlipidemia. Hypertension. History of right shoulder fracture PLAN: cont Levaquin d# 2 Monitor CBC Monitor BMP. Monitor cultures (blood, sputum). Monitor chest x-ray. Subjective Allergies: Coded Allergies: No Known Allergies (Unverified , 03/14/15) Subjective comfortable Objective Vital Signs Last 24 Hour Vital Signs Date Time Temp Pulse Resp B/P (MAP) Pulse Ox O2 Delivery O2 Flow Rate FiO2 09/25/17 08:32 137/85 09/25/17 08:03 72 18 Room Air 09/25/17 08:00 97.2 75 17 137/85 98 Room Air 97.2 09/25/17 05:20 69 09/25/17 04:00 97.3 62 21 114/61 94 Room Air 97.3 09/25/17 00:00 65 09/25/17 00:00 97.0 66 20 111/62 95 Room Air 97.0 09/24/17 20:00 71 09/24/17 20:00 97.0 71 20 109/68 94 Room Air 97.0 09/24/17 20:00 66 20 Room Air 09/24/17 16:00 65 09/24/17 16:00 97.7 62 18 108/66 93 Room Air 97.7 09/24/17 12:01 96.6 63 18 122/76 96 Nasal Cannula 2.0 96.6 09/24/17 12:00 62 Height (Feet): 5 Height (Inches): 4.00 Weight (Pounds): 180 HEENT: anicteric Respiratory/Chest: normal breath sounds Cardiovascular: normal rate Abdomen: soft, non tender Microbiology Date/Time Source Procedure Growth Status 09/23/17 19:06 Blood Blood Culture - Preliminary NO GROWTH AFTER 24 HOURS Resulted 09/23/17 19:06 Blood Blood Culture - Preliminary NO GROWTH AFTER 24 HOURS Resulted 09/23/17 19:27 Nasal Nares Influenza Types A,B Antigen (CHOCO) - Final Complete Laboratory Tests Test 09/25/17 06:15 White Blood Count 9.8 K/UL (4.8-10.8) Red Blood Count 3.71 M/UL (4.20-5.40) L Hemoglobin 11.7 G/DL (12.0-16.0) L Hematocrit 34.5 % (37.0-47.0) L Mean Corpuscular Volume 93 FL (80-99) Mean Corpuscular Hemoglobin 31.6 PG (27.0-31.0) H Mean Corpuscular Hemoglobin Concent 34.0 G/DL (32.0-36.0) Red Cell Distribution Width 12.2 % (11.6-14.8) Platelet Count 256 K/UL (150-450) Mean Platelet Volume 6.2 FL (6.5-10.1) L Neutrophils (%) (Auto) 64.7 % (45.0-75.0) Lymphocytes (%) (Auto) 21.3 % (20.0-45.0) Monocytes (%) (Auto) 13.7 % (1.0-10.0) H Eosinophils (%) (Auto) 0.1 % (0.0-3.0) Basophils (%) (Auto) 0.3 % (0.0-2.0) Erythrocyte Sedimentation Rate 50 MM/HR (0-42) H Sodium Level 142 MMOL/L (136-145) Potassium Level 3.8 MMOL/L (3.5-5.1) Chloride Level 107 MMOL/L (98-107) Carbon Dioxide Level 28 MMOL/L (21-32) Anion Gap 7 mmol/L (5-15) Blood Urea Nitrogen 28 mg/dL (7-18) H Creatinine 0.8 MG/DL (0.55-1.30) Estimat Glomerular Filtration Rate mL/min (>60) Glucose Level 118 MG/DL (74-106) H Calcium Level 8.9 MG/DL (8.5-10.1) Phosphorus Level 3.0 MG/DL (2.5-4.9) Magnesium Level 1.9 MG/DL (1.8-2.4) Total Bilirubin 0.3 MG/DL (0.2-1.0) Aspartate Amino Transf (AST/SGOT) 15 U/L (15-37) Alanine Aminotransferase (ALT/SGPT) 18 U/L (12-78) Alkaline Phosphatase 60 U/L (46-116) Troponin I 0.030 ng/mL (0.000-0.056) Total Protein 6.0 G/DL (6.4-8.2) L Albumin 3.0 G/DL (3.4-5.0) L Globulin 3.0 g/dL Albumin/Globulin Ratio 1.0 (1.0-2.7) Current Medications Medications (Trade) Dose Ordered Sig/Carmen Route PRN Reason Start Time Stop Time Status Last Admin Dose Admin Albuterol/ Ipratropium (Albuterol/ Ipratropium) 3 ml Q4H PRN HHN dyspnea 09/23/17 21:00 09/28/17 20:59 Benazepril HCl (Lotensin) 10 mg DAILY ORAL 09/24/17 09:00 10/24/17 08:59 09/25/17 08:32 Dextrose (Dextrose 50%) STAT PRN IV Hypoglycemia 09/23/17 21:00 10/23/17 20:59 Levetiracetam (Keppra) 250 mg DAILY ORAL 09/24/17 09:00 10/24/17 08:59 09/25/17 08:33 Levetiracetam (Keppra) 500 mg QHS ORAL 09/23/17 22:30 10/23/17 22:29 09/23/17 23:11 Levofloxacin 150 ml @ 100 mls/hr Q24H IVPB 09/24/17 14:00 10/01/17 23:59 09/24/17 15:05 Lorazepam (Ativan 2mg/ml 1ml) 0.5 mg Q4H PRN IV For Anxiety 09/23/17 21:00 09/30/17 20:59 Methylprednisolone Sodium Succinate (Solu-MEDROL) 60 mg DAILY IV 09/25/17 09:00 10/24/17 00:29 09/25/17 08:32 Morphine Sulfate (Morphine Sulfate) 2 mg Q4H PRN IVP severe pain 7-10 09/23/17 21:00 09/30/17 20:59 Nitroglycerin (Ntg) 0.4 mg Q5M X 3 DOSES PRN SL Prn Chest Pain 09/23/17 21:00 3/22/18 20:59 Ondansetron HCl (Zofran) 4 mg Q6H PRN IVP Nausea & Vomiting 09/23/17 21:00 10/23/17 20:59 Promethazine HCl/ Codeine (Phenergan with Codeine) 5 ml Q6H PRN ORAL cough 09/23/17 21:00 10/23/17 20:59 09/25/17 10:28 Rivaroxaban (Xarelto) 15 mg DAILY ORAL 09/24/17 09:00 10/24/17 08:59 09/25/17 08:33 Temazepam (Restoril) 15 mg HSPRN PRN ORAL Insomnia 09/23/17 21:00 09/30/17 20:59 Theophylline (Danilo-Dur) 100 mg EVERY 12 HOURS ORAL 09/23/17 22:00 10/23/17 21:59 09/25/17 08:32 ANNIE POTTER M.D. Sep 25, 2017 11:47
[2017-09-25 12:00] VITALS: BP 129/76
--- NOTE | 2017-09-25 14:57 | Pulmonology Progress Note ---
Assessment/Plan Problems: (1) Respiratory distress (2) Bronchitis (3) Viral syndrome (4) Hypertension (5) Cerebrovascular accident (CVA) Assessment/Plan improving afebrile check sputum, echo, labs taper sterids, solumedrol qd continue abx, on levofloxacin ID evaluation appreciated. Subjective Interval Events: slightly better, still coughing and wheezing Allergies: Coded Allergies: No Known Allergies (Unverified , 03/14/15) Objective Last 24 Hour Vital Signs Date Time Temp Pulse Resp B/P (MAP) Pulse Ox O2 Delivery O2 Flow Rate FiO2 09/25/17 12:00 97.2 72 18 129/76 96 Room Air 97.2 09/25/17 12:00 68 09/25/17 08:32 137/85 09/25/17 08:03 72 18 Room Air 09/25/17 08:00 97.2 75 17 137/85 98 Room Air 97.2 09/25/17 05:20 69 09/25/17 04:00 97.3 62 21 114/61 94 Room Air 97.3 09/25/17 00:00 65 09/25/17 00:00 97.0 66 20 111/62 95 Room Air 97.0 09/24/17 20:00 71 09/24/17 20:00 97.0 71 20 109/68 94 Room Air 97.0 09/24/17 20:00 66 20 Room Air 09/24/17 16:00 65 09/24/17 16:00 97.7 62 18 108/66 93 Room Air 97.7 Intake and Output 09/24/17 09/25/17 19:00 07:00 Intake Total 370 ml Balance 370 ml Intake Oral 220 ml IV Total 150 ml # Voids 2 1 Objective General Appearance: WD/WN Lines, tubes and drains: peripheral HEENT: normocephalic, atraumatic Neck: non-tender, normal alignment Respiratory/Chest: chest wall non-tender, lungs clear, expiratory wheezing Breasts: no masses Cardiovascular/Chest: normal peripheral pulses Genitourinary/Rectal: normal genital exam Extremities: normal range of motion, normal inspection, non-pitting Microbiology Date/Time Source Procedure Growth Status 09/23/17 19:06 Blood Blood Culture - Preliminary NO GROWTH AFTER 24 HOURS Resulted 09/23/17 19:06 Blood Blood Culture - Preliminary NO GROWTH AFTER 24 HOURS Resulted 09/23/17 19:27 Nasal Nares Influenza Types A,B Antigen (CHOCO) - Final Complete Laboratory Tests 09/25/17 06:15: White Blood Count 9.8, Red Blood Count 3.71L, Hemoglobin 11.7L, Hematocrit 34.5L , Mean Corpuscular Volume 93, Mean Corpuscular Hemoglobin 31.6H, Mean Corpuscular Hemoglobin Concent 34.0, Red Cell Distribution Width 12.2, Platelet Count 256, Mean Platelet Volume 6.2L, Neutrophils (%) (Auto) 64.7, Lymphocytes ( %) (Auto) 21.3, Monocytes (%) (Auto) 13.7H, Eosinophils (%) (Auto) 0.1, Basophils (%) (Auto) 0.3, Erythrocyte Sedimentation Rate 50H, Sodium Level 142, Potassium Level 3.8, Chloride Level 107, Carbon Dioxide Level 28, Anion Gap 7, Blood Urea Nitrogen 28H, Creatinine 0.8, Estimat Glomerular Filtration Rate , Glucose Level 118H, Calcium Level 8.9, Phosphorus Level 3.0, Magnesium Level 1.9 , Total Bilirubin 0.3, Aspartate Amino Transf (AST/SGOT) 15, Alanine Aminotransferase (ALT/SGPT) 18, Alkaline Phosphatase 60, Troponin I 0.030, Total Protein 6.0L, Albumin 3.0L, Globulin 3.0, Albumin/Globulin Ratio 1.0 Current Medications Medications (Trade) Dose Ordered Sig/Carmen Route PRN Reason Start Time Stop Time Status Last Admin Dose Admin Albuterol/ Ipratropium (Albuterol/ Ipratropium) 3 ml Q4H PRN HHN dyspnea 09/23/17 21:00 09/28/17 20:59 Benazepril HCl (Lotensin) 10 mg DAILY ORAL 09/24/17 09:00 10/24/17 08:59 09/25/17 08:32 Dextrose (Dextrose 50%) STAT PRN IV Hypoglycemia 09/23/17 21:00 10/23/17 20:59 Levetiracetam (Keppra) 250 mg DAILY ORAL 09/24/17 09:00 10/24/17 08:59 09/25/17 08:33 Levetiracetam (Keppra) 500 mg QHS ORAL 09/23/17 22:30 10/23/17 22:29 09/23/17 23:11 Levofloxacin 150 ml @ 100 mls/hr Q24H IVPB 09/24/17 14:00 10/01/17 23:59 09/25/17 14:18 Lorazepam (Ativan 2mg/ml 1ml) 0.5 mg Q4H PRN IV For Anxiety 09/23/17 21:00 09/30/17 20:59 Methylprednisolone Sodium Succinate (Solu-MEDROL) 60 mg DAILY IV 09/25/17 09:00 10/24/17 00:29 09/25/17 08:32 Morphine Sulfate (Morphine Sulfate) 2 mg Q4H PRN IVP severe pain 7-10 09/23/17 21:00 09/30/17 20:59 Nitroglycerin (Ntg) 0.4 mg Q5M X 3 DOSES PRN SL Prn Chest Pain 09/23/17 21:00 10/23/17 20:59 Ondansetron HCl (Zofran) 4 mg Q6H PRN IVP Nausea & Vomiting 09/23/17 21:00 10/23/17 20:59 Promethazine HCl/ Codeine (Phenergan with Codeine) 5 ml Q6H PRN ORAL cough 09/23/17 21:00 10/23/17 20:59 09/25/17 10:28 Rivaroxaban (Xarelto) 15 mg DAILY ORAL 09/24/17 09:00 10/24/17 08:59 09/25/17 08:33 Temazepam (Restoril) 15 mg HSPRN PRN ORAL Insomnia 09/23/17 21:00 09/30/17 20:59 Theophylline (Danilo-Dur) 100 mg EVERY 12 HOURS ORAL 09/23/17 22:00 10/23/17 21:59 09/25/17 08:32 MATTHEW AARON Sep 25, 2017 14:57
[2017-09-25 16:00] VITALS: BP 122/79
--- NOTE | 2017-09-25 16:37 | Internal Med Progress Note ---
Subjective Date of Service: Sep 25, 2017 Physician Name Naveed Sidhu Attending Physician Agus Carvajal MD Current Medications Medications (Trade) Dose Ordered Sig/Carmen Route PRN Reason Start Time Stop Time Status Last Admin Dose Admin Albuterol/ Ipratropium (Albuterol/ Ipratropium) 3 ml Q4H PRN HHN dyspnea 09/23/17 21:00 09/28/17 20:59 Benazepril HCl (Lotensin) 10 mg DAILY ORAL 09/24/17 09:00 10/24/17 08:59 09/25/17 08:32 Dextrose (Dextrose 50%) STAT PRN IV Hypoglycemia 09/23/17 21:00 10/23/17 20:59 Levetiracetam (Keppra) 250 mg DAILY ORAL 09/24/17 09:00 10/24/17 08:59 09/25/17 08:33 Levetiracetam (Keppra) 500 mg QHS ORAL 09/23/17 22:30 10/23/17 22:29 09/23/17 23:11 Levofloxacin 150 ml @ 100 mls/hr Q24H IVPB 09/24/17 14:00 10/01/17 23:59 09/25/17 14:18 Lorazepam (Ativan 2mg/ml 1ml) 0.5 mg Q4H PRN IV For Anxiety 09/23/17 21:00 09/30/17 20:59 Methylprednisolone Sodium Succinate (Solu-MEDROL) 60 mg DAILY IV 09/25/17 09:00 10/24/17 00:29 09/25/17 08:32 Morphine Sulfate (Morphine Sulfate) 2 mg Q4H PRN IVP severe pain 7-10 09/23/17 21:00 09/30/17 20:59 Nitroglycerin (Ntg) 0.4 mg Q5M X 3 DOSES PRN SL Prn Chest Pain 09/23/17 21:00 10/23/17 20:59 Ondansetron HCl (Zofran) 4 mg Q6H PRN IVP Nausea & Vomiting 09/23/17 21:00 10/23/17 20:59 Promethazine HCl/ Codeine (Phenergan with Codeine) 5 ml Q6H PRN ORAL cough 09/23/17 21:00 10/23/17 20:59 09/25/17 10:28 Rivaroxaban (Xarelto) 15 mg DAILY ORAL 09/24/17 09:00 10/24/17 08:59 09/25/17 08:33 Temazepam (Restoril) 15 mg HSPRN PRN ORAL Insomnia 09/23/17 21:00 09/30/17 20:59 Theophylline (Danilo-Dur) 100 mg EVERY 12 HOURS ORAL 09/23/17 22:00 10/23/17 21:59 09/25/17 08:32 Allergies: Coded Allergies: No Known Allergies (Unverified , 03/14/15) ROS Limited/Unobtainable: No Constitutional: Reports: no symptoms HEENT: Reports: no symptoms Cardiovascular: Reports: no symptoms Respiratory: Reports: cough, shortness of breath Gastrointestinal/Abdominal: Reports: no symptoms Genitourinary: Reports: no symptoms Neurologic/Psychiatric: Reports: no symptoms Subjective 86 YO F admitted with shortness of Breath, now pneumonia. Cover for Int Med-Dr Carvajal Objective Last Vital Signs Date Time Temp Pulse Resp B/P (MAP) Pulse Ox O2 Delivery O2 Flow Rate FiO2 09/25/17 16:00 97.2 85 17 122/79 96 Room Air 97.2 09/24/17 12:01 2.0 General Appearance: WD/WN, no apparent distress, alert EENT: PERRL/EOMI, normal ENT inspection, TMs normal Neck: non-tender, normal alignment, supple Cardiovascular: normal peripheral pulses, normal rate, regular rhythm, no gallop/murmur, no JVD Respiratory/Chest: chest wall non-tender, respiratory distress, crackles/rales , rhonchi - bilaterally, expiratory wheezing Abdomen: normal bowel sounds, non tender, soft, no organomegaly, no mass, abnormal bowel sounds Extremities: normal range of motion, non-tender 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, no motor/sensory deficits Skin: normal pigmentation, warm/dry Laboratory Tests Test 09/25/17 06:15 White Blood Count 9.8 K/UL (4.8-10.8) Red Blood Count 3.71 M/UL (4.20-5.40) L Hemoglobin 11.7 G/DL (12.0-16.0) L Hematocrit 34.5 % (37.0-47.0) L Mean Corpuscular Volume 93 FL (80-99) Mean Corpuscular Hemoglobin 31.6 PG (27.0-31.0) H Mean Corpuscular Hemoglobin Concent 34.0 G/DL (32.0-36.0) Red Cell Distribution Width 12.2 % (11.6-14.8) Platelet Count 256 K/UL (150-450) Mean Platelet Volume 6.2 FL (6.5-10.1) L Neutrophils (%) (Auto) 64.7 % (45.0-75.0) Lymphocytes (%) (Auto) 21.3 % (20.0-45.0) Monocytes (%) (Auto) 13.7 % (1.0-10.0) H Eosinophils (%) (Auto) 0.1 % (0.0-3.0) Basophils (%) (Auto) 0.3 % (0.0-2.0) Erythrocyte Sedimentation Rate 50 MM/HR (0-42) H Sodium Level 142 MMOL/L (136-145) Potassium Level 3.8 MMOL/L (3.5-5.1) Chloride Level 107 MMOL/L (98-107) Carbon Dioxide Level 28 MMOL/L (21-32) Anion Gap 7 mmol/L (5-15) Blood Urea Nitrogen 28 mg/dL (7-18) H Creatinine 0.8 MG/DL (0.55-1.30) Estimat Glomerular Filtration Rate mL/min (>60) Glucose Level 118 MG/DL (74-106) H Calcium Level 8.9 MG/DL (8.5-10.1) Phosphorus Level 3.0 MG/DL (2.5-4.9) Magnesium Level 1.9 MG/DL (1.8-2.4) Total Bilirubin 0.3 MG/DL (0.2-1.0) Aspartate Amino Transf (AST/SGOT) 15 U/L (15-37) Alanine Aminotransferase (ALT/SGPT) 18 U/L (12-78) Alkaline Phosphatase 60 U/L (46-116) Troponin I 0.030 ng/mL (0.000-0.056) Total Protein 6.0 G/DL (6.4-8.2) L Albumin 3.0 G/DL (3.4-5.0) L Globulin 3.0 g/dL Albumin/Globulin Ratio 1.0 (1.0-2.7) Microbiology Date/Time Source Procedure Growth Status 09/23/17 19:06 Blood Blood Culture - Preliminary NO GROWTH AFTER 24 HOURS Resulted 09/23/17 19:06 Blood Blood Culture - Preliminary NO GROWTH AFTER 24 HOURS Resulted 09/23/17 19:27 Nasal Nares Influenza Types A,B Antigen (CHOCO) - Final Complete Intake and Output 09/24/17 09/25/17 19:00 07:00 Intake Total 370 ml Balance 370 ml Intake Oral 220 ml IV Total 150 ml # Voids 2 1 Assessment/Plan Problem List: (1) SOB (shortness of breath) Assessment & Plan: Due to pneumonia (2) Pneumonia Assessment & Plan: See ID and pulmonary note. Continue IV levaquin, solumedrol and theophylline (3) Seizure disorder Assessment & Plan: Continue keppra (4) HTN (hypertension) Assessment & Plan: Continue lotensin (5) Glaucoma (6) Deep venous thrombosis of leg Assessment & Plan: Continue xarelto Status: progressing NAVEED SIDHU Sep 25, 2017 16:37
[2017-09-25] MEDS ORDERED: Nitroglycerin Subl 0.4mg tab SL PRN (18:15)
[2017-09-25] MEDS ORDERED: LORazepam Inj 2mg/ml 1ml IV PRN (18:30)
[2017-09-25] MEDS ORDERED: Promethazine/Codeine 5ml UD ORAL PRN (18:30)
[2017-09-25] MEDS ORDERED: Morphine Sulfate 4mg/ml Inj IVP PRN (18:30)
[2017-09-25 20:02] VITALS: BP 107/75
[2017-09-26] VITALS: BP 125/87
[2017-09-26 03:58] VITALS: BP 117/77
[2017-09-26 06:39] LABS: BASOPHILS % (AUTO) 0.6 % (0.0-2.0); EOSINOPHILS % (AUTO) 0.3 % (0.0-3.0); HEMATOCRIT 36.4 % (37.0-47.0); HEMOGLOBIN 12.4 G/DL (12.0-16.0); LYMPHOCYTES % (AUTO) 32.7 % (20.0-45.0); MEAN CORPUSCULAR VOLUME 93 FL (80-99); MONOCYTES % (AUTO) 15.3 % (1.0-10.0); NEUTROPHILS % (AUTO) 51.1 % (45.0-75.0); PLATELET COUNT 283 K/UL (150-450); RED BLOOD COUNT 3.91 M/UL (4.20-5.40); RED CELL DISTRIBUTION WIDTH 12.1 % (11.6-14.8); WHITE BLOOD COUNT 8.6 K/UL (4.8-10.8)
[2017-09-26 06:44] LABS: INR 1.1 (0.9-1.1)
[2017-09-26 07:08] LABS: ALANINE AMINOTRANSFERASE 20 U/L (12-78); ALBUMIN/GLOBULIN RATIO 0.8 (1.0-2.7); ALKALINE PHOSPHATASE 59 U/L (46-116); ANION GAP 6 mmol/L (5-15); ASPARTATE AMINO TRANSFERASE 17 U/L (15-37); BILIRUBIN,TOTAL 0.3 MG/DL (0.2-1.0); BLOOD UREA NITROGEN 25 mg/dL (7-18); CALCIUM 9.1 MG/DL (8.5-10.1); CARBON DIOXIDE 29 MMOL/L (21-32); CHLORIDE 107 MMOL/L (98-107); CREATININE 0.8 MG/DL (0.55-1.30); PHOSPHORUS 2.8 MG/DL (2.5-4.9); POTASSIUM 3.6 MMOL/L (3.5-5.1); SODIUM 142 MMOL/L (136-145)
[2017-09-26 08:00] VITALS: BP 125/80
[2017-09-26] MEDS: Albuterol/Ipratropium 3ml neb HHN PRN (08:10)
[2017-09-26] MEDS: Theophylline ER 100mg ORAL SCH ×2 (08:41→21:01)
[2017-09-26] MEDS: Xarelto 15mg tab ORAL SCH (08:42)
[2017-09-26] MEDS: Benazepril 10mg tab ORAL SCH (08:42)
[2017-09-26] MEDS: Solu-MEDROL 125mg Inj IV SCH (08:46)
--- NOTE | 2017-09-26 11:04 | Infectious Diseases Prog Note ---
Assessment/Plan Assessment/Plan ASSESSMENT: The patient is an 86-year-old female with; Cough, shortness of breath, improving pneumonia/bronchitis improving Chest x-ray: left costophrenic sulcus and streaking of left basilar opacities. Afebrile. Normal white blood cells Influenza A and B negative Seizure disorder. CVA with right-sided weakness. CHF. Hyperlipidemia. Hypertension. History of right shoulder fracture PLAN: cont Levaquin d# 3/ 5 Monitor CBC Monitor BMP. Monitor cultures (blood, sputum). Monitor chest x-ray. Subjective Allergies: Coded Allergies: No Known Allergies (Unverified , 03/14/15) Subjective comfortable Objective Vital Signs Last 24 Hour Vital Signs Date Time Temp Pulse Resp B/P (MAP) Pulse Ox O2 Delivery O2 Flow Rate FiO2 09/26/17 08:42 125/80 09/26/17 08:21 113 20 98 Room Air 21 09/26/17 08:10 111 22 Room Air 21 09/26/17 08:10 111 22 98 Room Air 21 09/26/17 08:00 97.7 71 20 125/80 93 97.7 09/26/17 04:00 93 Room Air 09/26/17 03:58 97.7 73 20 117/77 90 Room Air 97.7 09/26/17 00:00 97.7 62 20 125/87 91 Room Air 97.7 09/25/17 20:08 74 18 Room Air 09/25/17 20:02 96.8 85 20 107/75 93 Room Air 96.8 09/25/17 16:00 97.2 85 17 122/79 96 Room Air 97.2 09/25/17 12:00 97.2 72 18 129/76 96 Room Air 97.2 09/25/17 12:00 68 Height (Feet): 5 Height (Inches): 4.00 Weight (Pounds): 180 HEENT: atraumatic Respiratory/Chest: no respiratory distress Cardiovascular: regularly irregular Abdomen: no organomegaly Microbiology Date/Time Source Procedure Growth Status 09/23/17 19:06 Blood Blood Culture - Preliminary NO GROWTH AFTER 48 HOURS Resulted 09/23/17 19:06 Blood Blood Culture - Preliminary NO GROWTH AFTER 48 HOURS Resulted 09/23/17 19:27 Nasal Nares Influenza Types A,B Antigen (CHOCO) - Final Complete Laboratory Tests Test 09/26/17 06:05 White Blood Count 8.6 K/UL (4.8-10.8) Red Blood Count 3.91 M/UL (4.20-5.40) L Hemoglobin 12.4 G/DL (12.0-16.0) Hematocrit 36.4 % (37.0-47.0) L Mean Corpuscular Volume 93 FL (80-99) Mean Corpuscular Hemoglobin 31.6 PG (27.0-31.0) H Mean Corpuscular Hemoglobin Concent 33.9 G/DL (32.0-36.0) Red Cell Distribution Width 12.1 % (11.6-14.8) Platelet Count 283 K/UL (150-450) Mean Platelet Volume 5.8 FL (6.5-10.1) L Neutrophils (%) (Auto) 51.1 % (45.0-75.0) Lymphocytes (%) (Auto) 32.7 % (20.0-45.0) Monocytes (%) (Auto) 15.3 % (1.0-10.0) H Eosinophils (%) (Auto) 0.3 % (0.0-3.0) Basophils (%) (Auto) 0.6 % (0.0-2.0) Prothrombin Time 11.5 SEC (9.30-11.50) Prothromb Time International Ratio 1.1 (0.9-1.1) Activated Partial Thromboplast Time 33 SEC (23-33) Sodium Level 142 MMOL/L (136-145) Potassium Level 3.6 MMOL/L (3.5-5.1) Chloride Level 107 MMOL/L (98-107) Carbon Dioxide Level 29 MMOL/L (21-32) Anion Gap 6 mmol/L (5-15) Blood Urea Nitrogen 25 mg/dL (7-18) H Creatinine 0.8 MG/DL (0.55-1.30) Estimat Glomerular Filtration Rate mL/min (>60) Glucose Level 96 MG/DL (74-106) Calcium Level 9.1 MG/DL (8.5-10.1) Phosphorus Level 2.8 MG/DL (2.5-4.9) Magnesium Level 1.9 MG/DL (1.8-2.4) Total Bilirubin 0.3 MG/DL (0.2-1.0) Aspartate Amino Transf (AST/SGOT) 17 U/L (15-37) Alanine Aminotransferase (ALT/SGPT) 20 U/L (12-78) Alkaline Phosphatase 59 U/L (46-116) Total Protein 6.6 G/DL (6.4-8.2) Albumin 3.0 G/DL (3.4-5.0) L Globulin 3.6 g/dL Albumin/Globulin Ratio 0.8 (1.0-2.7) L Current Medications Medications (Trade) Dose Ordered Sig/Carmen Route PRN Reason Start Time Stop Time Status Last Admin Dose Admin Albuterol/ Ipratropium (Albuterol/ Ipratropium) 3 ml Q4H PRN HHN dyspnea 09/25/17 18:30 09/28/17 18:29 09/26/17 08:10 Benazepril HCl (Lotensin) 10 mg DAILY ORAL 09/26/17 09:00 10/24/17 08:59 09/26/17 08:42 Dextrose (Dextrose 50%) STAT PRN IV Hypoglycemia 09/25/17 18:30 10/23/17 18:29 Levetiracetam (Keppra) 250 mg DAILY ORAL 09/26/17 09:00 10/24/17 08:59 09/26/17 08:42 Levetiracetam (Keppra) 500 mg QHS ORAL 09/25/17 21:00 10/23/17 22:29 09/25/17 20:27 Levofloxacin 150 ml @ 100 mls/hr Q24H IVPB 09/26/17 14:00 10/01/17 23:59 Lorazepam (Ativan 2mg/ml 1ml) 0.5 mg Q4H PRN IV For Anxiety 09/25/17 18:30 09/30/17 18:29 Methylprednisolone Sodium Succinate (Solu-MEDROL) 60 mg DAILY IV 09/26/17 09:00 10/24/17 00:29 09/26/17 08:46 Morphine Sulfate (Morphine Sulfate) 2 mg Q4H PRN IVP Severe Pain (Pain Scale 7-10) 09/25/17 18:30 09/30/17 18:29 Nitroglycerin (Ntg) 0.4 mg Q5M X 3 DOSES PRN SL Prn Chest Pain 09/25/17 18:15 10/23/17 20:59 Ondansetron HCl (Zofran) 4 mg Q6H PRN IVP Nausea & Vomiting 09/25/17 18:30 10/23/17 18:29 Promethazine HCl/ Codeine (Phenergan with Codeine) 5 ml Q6H PRN ORAL cough 09/25/17 18:30 10/23/17 18:29 Rivaroxaban (Xarelto) 15 mg DAILY ORAL 09/26/17 09:00 10/24/17 08:59 09/26/17 08:42 Temazepam (Restoril) 15 mg HSPRN PRN ORAL Insomnia 09/25/17 21:00 09/30/17 20:59 Theophylline (Danilo-Dur) 100 mg EVERY 12 HOURS ORAL 09/25/17 21:00 10/23/17 21:59 09/26/17 08:41 ANNIE POTTER M.D. Sep 26, 2017 11:04
[2017-09-26 12:00] VITALS: BP 107/72
--- NOTE | 2017-09-26 15:48 | Internal Med Progress Note ---
Subjective Date of Service: Sep 26, 2017 Physician Name Naveed Mcleod Attending Physician Agus Carvajal MD Current Medications Medications (Trade) Dose Ordered Sig/Carmen Route PRN Reason Start Time Stop Time Status Last Admin Dose Admin Albuterol/ Ipratropium (Albuterol/ Ipratropium) 3 ml Q4H PRN HHN dyspnea 09/25/17 18:30 09/28/17 18:29 09/26/17 08:10 Benazepril HCl (Lotensin) 10 mg DAILY ORAL 09/26/17 09:00 10/24/17 08:59 09/26/17 08:42 Dextrose (Dextrose 50%) STAT PRN IV Hypoglycemia 09/25/17 18:30 10/23/17 18:29 Levetiracetam (Keppra) 250 mg DAILY ORAL 09/26/17 09:00 10/24/17 08:59 09/26/17 08:42 Levetiracetam (Keppra) 500 mg QHS ORAL 09/25/17 21:00 10/23/17 22:29 09/25/17 20:27 Levofloxacin 150 ml @ 100 mls/hr Q24H IVPB 09/26/17 14:00 10/01/17 23:59 09/26/17 14:14 Lorazepam (Ativan 2mg/ml 1ml) 0.5 mg Q4H PRN IV For Anxiety 09/25/17 18:30 09/30/17 18:29 Methylprednisolone Sodium Succinate (Solu-MEDROL) 60 mg DAILY IV 09/26/17 09:00 10/24/17 00:29 09/26/17 08:46 Morphine Sulfate (Morphine Sulfate) 2 mg Q4H PRN IVP Severe Pain (Pain Scale 7-10) 09/25/17 18:30 09/30/17 18:29 Nitroglycerin (Ntg) 0.4 mg Q5M X 3 DOSES PRN SL Prn Chest Pain 09/25/17 18:15 10/23/17 20:59 Ondansetron HCl (Zofran) 4 mg Q6H PRN IVP Nausea & Vomiting 09/25/17 18:30 10/23/17 18:29 Promethazine HCl/ Codeine (Phenergan with Codeine) 5 ml Q6H PRN ORAL cough 09/25/17 18:30 3/22/18 18:29 Rivaroxaban (Xarelto) 15 mg DAILY ORAL 09/26/17 09:00 10/24/17 08:59 09/26/17 08:42 Temazepam (Restoril) 15 mg HSPRN PRN ORAL Insomnia 09/25/17 21:00 09/30/17 20:59 Theophylline (Danilo-Dur) 100 mg EVERY 12 HOURS ORAL 09/25/17 21:00 10/23/17 21:59 09/26/17 08:41 Allergies: Coded Allergies: No Known Allergies (Unverified , 03/14/15) ROS Limited/Unobtainable: Yes Subjective 86 YO F admitted with shortness of Breath, now pneumonia. Cover for Int Skinny-Dr Carvajal Objective Last Vital Signs Date Time Temp Pulse Resp B/P (MAP) Pulse Ox O2 Delivery O2 Flow Rate FiO2 09/26/17 12:00 97.3 96 20 107/72 92 97.3 09/26/17 08:21 Room Air 21 09/24/17 12:01 2.0 Laboratory Tests Test 09/26/17 06:05 White Blood Count 8.6 K/UL (4.8-10.8) Red Blood Count 3.91 M/UL (4.20-5.40) L Hemoglobin 12.4 G/DL (12.0-16.0) Hematocrit 36.4 % (37.0-47.0) L Mean Corpuscular Volume 93 FL (80-99) Mean Corpuscular Hemoglobin 31.6 PG (27.0-31.0) H Mean Corpuscular Hemoglobin Concent 33.9 G/DL (32.0-36.0) Red Cell Distribution Width 12.1 % (11.6-14.8) Platelet Count 283 K/UL (150-450) Mean Platelet Volume 5.8 FL (6.5-10.1) L Neutrophils (%) (Auto) 51.1 % (45.0-75.0) Lymphocytes (%) (Auto) 32.7 % (20.0-45.0) Monocytes (%) (Auto) 15.3 % (1.0-10.0) H Eosinophils (%) (Auto) 0.3 % (0.0-3.0) Basophils (%) (Auto) 0.6 % (0.0-2.0) Prothrombin Time 11.5 SEC (9.30-11.50) Prothromb Time International Ratio 1.1 (0.9-1.1) Activated Partial Thromboplast Time 33 SEC (23-33) Sodium Level 142 MMOL/L (136-145) Potassium Level 3.6 MMOL/L (3.5-5.1) Chloride Level 107 MMOL/L (98-107) Carbon Dioxide Level 29 MMOL/L (21-32) Anion Gap 6 mmol/L (5-15) Blood Urea Nitrogen 25 mg/dL (7-18) H Creatinine 0.8 MG/DL (0.55-1.30) Estimat Glomerular Filtration Rate mL/min (>60) Glucose Level 96 MG/DL (74-106) Calcium Level 9.1 MG/DL (8.5-10.1) Phosphorus Level 2.8 MG/DL (2.5-4.9) Magnesium Level 1.9 MG/DL (1.8-2.4) Total Bilirubin 0.3 MG/DL (0.2-1.0) Aspartate Amino Transf (AST/SGOT) 17 U/L (15-37) Alanine Aminotransferase (ALT/SGPT) 20 U/L (12-78) Alkaline Phosphatase 59 U/L (46-116) Total Protein 6.6 G/DL (6.4-8.2) Albumin 3.0 G/DL (3.4-5.0) L Globulin 3.6 g/dL Albumin/Globulin Ratio 0.8 (1.0-2.7) L Microbiology Date/Time Source Procedure Growth Status 09/23/17 19:06 Blood Blood Culture - Preliminary NO GROWTH AFTER 48 HOURS Resulted 09/23/17 19:06 Blood Blood Culture - Preliminary NO GROWTH AFTER 48 HOURS Resulted 09/23/17 19:27 Nasal Nares Influenza Types A,B Antigen (CHOCO) - Final Complete Intake and Output 09/25/17 09/26/17 19:00 07:00 Intake Total 350 ml 160 ml Balance 350 ml 160 ml Intake Oral 350 ml 160 ml # Voids 2 2 Objective General Appearance: WD/WN, no apparent distress, alert EENT: PERRL/EOMI, normal ENT inspection, TMs normal Neck: non-tender, normal alignment, supple Cardiovascular: normal peripheral pulses, normal rate, regular rhythm, no gallop/murmur, no JVD Respiratory/Chest: chest wall non-tender, respiratory distress, crackles/rales , rhonchi - bilaterally, expiratory wheezing Abdomen: normal bowel sounds, non tender, soft, no organomegaly, no mass, abnormal bowel sounds Extremities: normal range of motion, non-tender 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 Continue IV levaquin, solumedrol and theophylline (3) Seizure disorder Assessment & Plan: Continue keppra (4) HTN (hypertension) Assessment & Plan: Continue lotensin (5) Glaucoma (6) Deep venous thrombosis of leg Assessment & Plan: Continue xarelto Status: stable Assessment/Plan Discharge planning: [facility] NAVEED Ferrer Sep 26, 2017 15:48
[2017-09-26 16:00] VITALS: BP 115/77
[2017-09-26] MEDS ORDERED: Tubing IV Secondary IV ONE (17:53)
[2017-09-26] MEDS ORDERED: NS 275ml ONE (17:53)
[2017-09-26 20:00] VITALS: BP 139/91
--- NOTE | 2017-09-26 22:33 | Pulmonology Progress Note ---
Assessment/Plan Problems: (1) Respiratory distress (2) Bronchitis (3) Viral syndrome (4) Hypertension (5) Cerebrovascular accident (CVA) Assessment/Plan improving afebrile check sputum, echo, labs taper sterids, solumedrol qd continue abx, on levofloxacin ID evaluation appreciated. dvt prophylaxis Subjective ROS Limited/Unobtainable: No Allergies: Coded Allergies: No Known Allergies (Unverified , 03/14/15) Objective Last 24 Hour Vital Signs Date Time Temp Pulse Resp B/P (MAP) Pulse Ox O2 Delivery O2 Flow Rate FiO2 09/26/17 20:00 97.0 98 20 139/91 95 97.0 09/26/17 19:30 102 20 Room Air 21 09/26/17 16:00 97.7 78 20 115/77 94 97.7 09/26/17 12:00 97.3 96 20 107/72 92 97.3 09/26/17 08:42 125/80 09/26/17 08:21 113 20 98 Room Air 21 09/26/17 08:10 111 22 Room Air 21 09/26/17 08:10 111 22 98 Room Air 21 09/26/17 08:00 97.7 71 20 125/80 93 97.7 09/26/17 04:00 93 Room Air 09/26/17 03:58 97.7 73 20 117/77 90 Room Air 97.7 09/26/17 00:00 97.7 62 20 125/87 91 Room Air 97.7 Intake and Output 09/25/17 09/26/17 19:00 07:00 Intake Total 350 ml 160 ml Balance 350 ml 160 ml Intake Oral 350 ml 160 ml # Voids 2 2 Objective General Appearance: WD/WN Lines, tubes and drains: peripheral HEENT: normocephalic, atraumatic Neck: non-tender, normal alignment Respiratory/Chest: chest wall non-tender, lungs clear, expiratory wheezing Breasts: no masses Cardiovascular/Chest: normal peripheral pulses Genitourinary/Rectal: normal genital exam Extremities: normal range of motion, normal inspection, non-pitting Laboratory Tests 09/26/17 06:05: White Blood Count 8.6, Red Blood Count 3.91L, Hemoglobin 12.4, Hematocrit 36.4L , Mean Corpuscular Volume 93, Mean Corpuscular Hemoglobin 31.6H, Mean Corpuscular Hemoglobin Concent 33.9, Red Cell Distribution Width 12.1, Platelet Count 283, Mean Platelet Volume 5.8L, Neutrophils (%) (Auto) 51.1, Lymphocytes ( %) (Auto) 32.7, Monocytes (%) (Auto) 15.3H, Eosinophils (%) (Auto) 0.3, Basophils (%) (Auto) 0.6, Prothrombin Time 11.5, Prothromb Time International Ratio 1.1, Activated Partial Thromboplast Time 33, Sodium Level 142, Potassium Level 3.6, Chloride Level 107, Carbon Dioxide Level 29, Anion Gap 6, Blood Urea Nitrogen 25H, Creatinine 0.8, Estimat Glomerular Filtration Rate , Glucose Level 96, Calcium Level 9.1, Phosphorus Level 2.8, Magnesium Level 1.9, Total Bilirubin 0.3, Aspartate Amino Transf (AST/SGOT) 17, Alanine Aminotransferase ( ALT/SGPT) 20, Alkaline Phosphatase 59, Total Protein 6.6, Albumin 3.0L, Globulin 3.6, Albumin/Globulin Ratio 0.8L Current Medications Medications (Trade) Dose Ordered Sig/Carmen Route PRN Reason Start Time Stop Time Status Last Admin Dose Admin Albuterol/ Ipratropium (Albuterol/ Ipratropium) 3 ml Q4H PRN HHN dyspnea 09/25/17 18:30 09/28/17 18:29 09/26/17 08:10 Benazepril HCl (Lotensin) 10 mg DAILY ORAL 09/26/17 09:00 10/24/17 08:59 09/26/17 08:42 Dextrose (Dextrose 50%) STAT PRN IV Hypoglycemia 09/25/17 18:30 10/23/17 18:29 Levetiracetam (Keppra) 250 mg DAILY ORAL 09/26/17 09:00 10/24/17 08:59 09/26/17 08:42 Levetiracetam (Keppra) 500 mg QHS ORAL 09/25/17 21:00 10/23/17 22:29 09/26/17 21:01 Levofloxacin 150 ml @ 100 mls/hr Q24H IVPB 09/26/17 14:00 10/01/17 23:59 09/26/17 14:14 Lorazepam (Ativan 2mg/ml 1ml) 0.5 mg Q4H PRN IV For Anxiety 09/25/17 18:30 09/30/17 18:29 Methylprednisolone Sodium Succinate (Solu-MEDROL) 60 mg DAILY IV 09/26/17 09:00 10/24/17 00:29 09/26/17 08:46 Morphine Sulfate (Morphine Sulfate) 2 mg Q4H PRN IVP Severe Pain (Pain Scale 7-10) 09/25/17 18:30 09/30/17 18:29 Nitroglycerin (Ntg) 0.4 mg Q5M X 3 DOSES PRN SL Prn Chest Pain 09/25/17 18:15 10/23/17 20:59 Ondansetron HCl (Zofran) 4 mg Q6H PRN IVP Nausea & Vomiting 09/25/17 18:30 10/23/17 18:29 Promethazine HCl/ Codeine (Phenergan with Codeine) 5 ml Q6H PRN ORAL cough 09/25/17 18:30 10/23/17 18:29 Rivaroxaban (Xarelto) 15 mg DAILY ORAL 09/26/17 09:00 10/24/17 08:59 09/26/17 08:42 Temazepam (Restoril) 15 mg HSPRN PRN ORAL Insomnia 09/25/17 21:00 09/30/17 20:59 Theophylline (Danilo-Dur) 100 mg EVERY 12 HOURS ORAL 09/25/17 21:00 10/23/17 21:59 09/26/17 21:01 MATTHEW AARON Sep 26, 2017 22:33
[2017-09-27] VITALS: BP 141/90
[2017-09-27 03:36] VITALS: BP 128/68
[2017-09-27 07:24] LABS: BASOPHILS % (AUTO) 0.6 % (0.0-2.0); EOSINOPHILS % (AUTO) 0.3 % (0.0-3.0); HEMATOCRIT 35.6 % (37.0-47.0); HEMOGLOBIN 12.1 G/DL (12.0-16.0); LYMPHOCYTES % (AUTO) 38.9 % (20.0-45.0); MEAN CORPUSCULAR VOLUME 93 FL (80-99); MONOCYTES % (AUTO) 15.3 % (1.0-10.0); NEUTROPHILS % (AUTO) 44.8 % (45.0-75.0); PLATELET COUNT 287 K/UL (150-450); RED BLOOD COUNT 3.82 M/UL (4.20-5.40); RED CELL DISTRIBUTION WIDTH 12.4 % (11.6-14.8); WHITE BLOOD COUNT 8.8 K/UL (4.8-10.8)
[2017-09-27 07:31] LABS: ANION GAP 5 mmol/L (5-15); BLOOD UREA NITROGEN 24 mg/dL (7-18); CALCIUM 9.2 MG/DL (8.5-10.1); CARBON DIOXIDE 30 MMOL/L (21-32); CHLORIDE 107 MMOL/L (98-107); CREATININE 0.8 MG/DL (0.55-1.30); POTASSIUM 3.8 MMOL/L (3.5-5.1); SODIUM 142 MMOL/L (136-145)
[2017-09-27 08:00] VITALS: BP 139/94
[2017-09-27] MEDS: Xarelto 15mg tab ORAL SCH (09:42)
[2017-09-27] MEDS: Solu-MEDROL 125mg Inj IV SCH (09:42)
[2017-09-27] MEDS: Benazepril 10mg tab ORAL SCH (09:43)
[2017-09-27] MEDS: Theophylline ER 100mg ORAL SCH ×2 (10:10→21:07)
[2017-09-27] MEDS: Albuterol/Ipratropium 3ml neb HHN PRN (10:53)
--- NOTE | 2017-09-27 11:00 | Pulmonology Progress Note ---
Assessment/Plan Problems: (1) Respiratory distress (2) Bronchitis (3) Viral syndrome (4) Hypertension (5) Cerebrovascular accident (CVA) Assessment[facility], stat cxr afebrile check sputum, echo, labs taper sterids, solumedrol qd continue abx, on levofloxacin ID evaluation appreciated. dvt prophylaxis Subjective Interval Events: sob, wheezing, aubible Allergies: Coded Allergies: No Known Allergies (Unverified , 03/14/15) Objective Last 24 Hour Vital Signs Date Time Temp Pulse Resp B/P (MAP) Pulse Ox O2 Delivery O2 Flow Rate FiO2 09/27/17 09:43 139/94 09/27/17 08:00 97.5 87 20 139/94 93 97.5 09/27/17 07:58 90 18 Room Air 21 09/27/17 03:36 98.1 86 20 128/68 95 Room Air 98.1 09/27/17 00:00 97.7 82 21 141/90 94 97.7 09/26/17 20:00 97.0 98 20 139/91 95 97.0 09/26/17 19:30 102 20 Room Air 21 09/26/17 16:00 97.7 78 20 115/77 94 97.7 09/26/17 12:00 97.3 96 20 107/72 92 97.3 Intake and Output 09/26/17 09/27/17 19:00 07:00 Intake Total 1200 ml Balance 1200 ml Intake Oral 1200 ml # Voids 4 5 Objective General Appearance: WD/WN Lines, tubes and drains: peripheral HEENT: normocephalic, atraumatic Neck: non-tender, normal alignment Respiratory/Chest: chest wall non-tender, lungs clear, loud expiratory wheezing Breasts: no masses Cardiovascular/Chest: normal peripheral pulses Genitourinary/Rectal: normal genital exam Extremities: normal range of motion, normal inspection, non-pitting Laboratory Tests 09/27/17 05:25: White Blood Count 8.8, Red Blood Count 3.82L, Hemoglobin 12.1, Hematocrit 35.6L , Mean Corpuscular Volume 93, Mean Corpuscular Hemoglobin 31.6H, Mean Corpuscular Hemoglobin Concent 33.9, Red Cell Distribution Width 12.4, Platelet Count 287, Mean Platelet Volume 5.9L, Neutrophils (%) (Auto) 44.8L, Lymphocytes (%) (Auto) 38.9, Monocytes (%) (Auto) 15.3H, Eosinophils (%) (Auto) 0.3, Basophils (%) (Auto) 0.6, Sodium Level 142, Potassium Level 3.8, Chloride Level 107, Carbon Dioxide Level 30, Anion Gap 5, Blood Urea Nitrogen 24H, Creatinine 0.8, Estimat Glomerular Filtration Rate , Glucose Level 107H, Calcium Level 9.2 Current Medications Medications (Trade) Dose Ordered Sig/Carmen Route PRN Reason Start Time Stop Time Status Last Admin Dose Admin Albuterol/ Ipratropium (Albuterol/ Ipratropium) 3 ml Q4H PRN HHN dyspnea 09/25/17 18:30 09/28/17 18:29 09/27/17 10:53 Benazepril HCl (Lotensin) 10 mg DAILY ORAL 09/26/17 09:00 10/24/17 08:59 09/27/17 09:43 Dextrose (Dextrose 50%) STAT PRN IV Hypoglycemia 09/25/17 18:30 10/23/17 18:29 Levetiracetam (Keppra) 250 mg DAILY ORAL 09/26/17 09:00 10/24/17 08:59 09/27/17 09:43 Levetiracetam (Keppra) 500 mg QHS ORAL 09/25/17 21:00 10/23/17 22:29 09/26/17 21:01 Levofloxacin 150 ml @ 100 mls/hr Q24H IVPB 09/26/17 14:00 10/01/17 23:59 09/26/17 14:14 Lorazepam (Ativan 2mg/ml 1ml) 0.5 mg Q4H PRN IV For Anxiety 09/25/17 18:30 09/30/17 18:29 Methylprednisolone Sodium Succinate (Solu-MEDROL) 60 mg DAILY IV 09/26/17 09:00 10/24/17 00:29 09/27/17 09:42 Morphine Sulfate (Morphine Sulfate) 2 mg Q4H PRN IVP Severe Pain (Pain Scale 7-10) 09/25/17 18:30 09/30/17 18:29 Nitroglycerin (Ntg) 0.4 mg Q5M X 3 DOSES PRN SL Prn Chest Pain 09/25/17 18:15 10/23/17 20:59 Ondansetron HCl (Zofran) 4 mg Q6H PRN IVP Nausea & Vomiting 09/25/17 18:30 10/23/17 18:29 Promethazine HCl/ Codeine (Phenergan with Codeine) 5 ml Q6H PRN ORAL cough 09/25/17 18:30 10/23/17 18:29 09/27/17 09:42 Rivaroxaban (Xarelto) 15 mg DAILY ORAL 09/26/17 09:00 10/24/17 08:59 09/27/17 09:42 Temazepam (Restoril) 15 mg HSPRN PRN ORAL Insomnia 09/25/17 21:00 09/30/17 20:59 Theophylline (Danilo-Dur) 100 mg EVERY 12 HOURS ORAL 09/25/17 21:00 10/23/17 21:59 09/27/17 10:10 MATTHEW AARON Sep 27, 2017 11:00
--- NOTE | 2017-09-27 11:19 | Infectious Diseases Prog Note ---
Assessment/Plan Assessment/Plan Assessment/Plan ASSESSMENT: The patient is an 86-year-old female with; Cough, shortness of breath, improving pneumonia/bronchitis improving Chest x-ray: left costophrenic sulcus and streaking of left basilar opacities. Afebrile. Normal white blood cells Influenza A and B negative Seizure disorder. CVA with right-sided weakness. CHF. Hyperlipidemia. Hypertension. History of right shoulder fracture PLAN: cont Levaquin d# 4/ 5 , but switch to PO Monitor CBC Monitor BMP. Monitor cultures (blood, sputum). Monitor chest x-ray. Subjective Allergies: Coded Allergies: No Known Allergies (Unverified , 03/14/15) Subjective afebrile no leukocytosis cough improving Objective Vital Signs Last 24 Hour Vital Signs Date Time Temp Pulse Resp B/P (MAP) Pulse Ox O2 Delivery O2 Flow Rate FiO2 09/27/17 11:05 92 20 98 Room Air 21 09/27/17 10:54 90 20 97 Room Air 21 09/27/17 09:43 139/94 09/27/17 08:00 97.5 87 20 139/94 93 97.5 09/27/17 07:58 90 18 Room Air 21 09/27/17 03:36 98.1 86 20 128/68 95 Room Air 98.1 09/27/17 00:00 97.7 82 21 141/90 94 97.7 09/26/17 20:00 97.0 98 20 139/91 95 97.0 09/26/17 19:30 102 20 Room Air 21 09/26/17 16:00 97.7 78 20 115/77 94 97.7 09/26/17 12:00 97.3 96 20 107/72 92 97.3 Height (Feet): 5 Height (Inches): 4.00 Weight (Pounds): 180 Objective HEENT: atraumatic Respiratory/Chest: no respiratory distress Cardiovascular: regularly irregular Abdomen: no organomegaly Laboratory Tests Test 09/27/17 05:25 White Blood Count 8.8 K/UL (4.8-10.8) Red Blood Count 3.82 M/UL (4.20-5.40) L Hemoglobin 12.1 G/DL (12.0-16.0) Hematocrit 35.6 % (37.0-47.0) L Mean Corpuscular Volume 93 FL (80-99) Mean Corpuscular Hemoglobin 31.6 PG (27.0-31.0) H Mean Corpuscular Hemoglobin Concent 33.9 G/DL (32.0-36.0) Red Cell Distribution Width 12.4 % (11.6-14.8) Platelet Count 287 K/UL (150-450) Mean Platelet Volume 5.9 FL (6.5-10.1) L Neutrophils (%) (Auto) 44.8 % (45.0-75.0) L Lymphocytes (%) (Auto) 38.9 % (20.0-45.0) Monocytes (%) (Auto) 15.3 % (1.0-10.0) H Eosinophils (%) (Auto) 0.3 % (0.0-3.0) Basophils (%) (Auto) 0.6 % (0.0-2.0) Sodium Level 142 MMOL/L (136-145) Potassium Level 3.8 MMOL/L (3.5-5.1) Chloride Level 107 MMOL/L (98-107) Carbon Dioxide Level 30 MMOL/L (21-32) Anion Gap 5 mmol/L (5-15) Blood Urea Nitrogen 24 mg/dL (7-18) H Creatinine 0.8 MG/DL (0.55-1.30) Estimat Glomerular Filtration Rate mL/min (>60) Glucose Level 107 MG/DL (74-106) H Calcium Level 9.2 MG/DL (8.5-10.1) Current Medications Medications (Trade) Dose Ordered Sig/Carmen Route PRN Reason Start Time Stop Time Status Last Admin Dose Admin Albuterol/ Ipratropium (Albuterol/ Ipratropium) 3 ml Q4H PRN HHN dyspnea 09/25/17 18:30 09/28/17 18:29 09/27/17 10:53 Benazepril HCl (Lotensin) 10 mg DAILY ORAL 09/26/17 09:00 10/24/17 08:59 09/27/17 09:43 Dextrose (Dextrose 50%) STAT PRN IV Hypoglycemia 09/25/17 18:30 10/23/17 18:29 Levetiracetam (Keppra) 250 mg DAILY ORAL 09/26/17 09:00 10/24/17 08:59 09/27/17 09:43 Levetiracetam (Keppra) 500 mg QHS ORAL 09/25/17 21:00 10/23/17 22:29 09/26/17 21:01 Levofloxacin 150 ml @ 100 mls/hr Q24H IVPB 09/26/17 14:00 10/01/17 23:59 09/26/17 14:14 Lorazepam (Ativan 2mg/ml 1ml) 0.5 mg Q4H PRN IV For Anxiety 09/25/17 18:30 09/30/17 18:29 Methylprednisolone Sodium Succinate (Solu-MEDROL) 60 mg DAILY IV 09/26/17 09:00 10/24/17 00:29 09/27/17 09:42 Morphine Sulfate (Morphine Sulfate) 2 mg Q4H PRN IVP Severe Pain (Pain Scale 7-10) 09/25/17 18:30 09/30/17 18:29 Nitroglycerin (Ntg) 0.4 mg Q5M X 3 DOSES PRN SL Prn Chest Pain 09/25/17 18:15 10/23/17 20:59 Ondansetron HCl (Zofran) 4 mg Q6H PRN IVP Nausea & Vomiting 09/25/17 18:30 10/23/17 18:29 Promethazine HCl/ Codeine (Phenergan with Codeine) 5 ml Q6H PRN ORAL cough 09/25/17 18:30 10/23/17 18:29 09/27/17 09:42 Rivaroxaban (Xarelto) 15 mg DAILY ORAL 09/26/17 09:00 10/24/17 08:59 09/27/17 09:42 Temazepam (Restoril) 15 mg HSPRN PRN ORAL Insomnia 09/25/17 21:00 09/30/17 20:59 Theophylline (Danilo-Dur) 100 mg EVERY 12 HOURS ORAL 09/25/17 21:00 10/23/17 21:59 09/27/17 10:10 Yadira Vinson M.D. Sep 27, 2017 11:19
[2017-09-27 12:00] VITALS: BP 123/72
[2017-09-27] MEDS ORDERED: Nitroglycerin Subl 0.4mg tab SL PRN (12:45)
[2017-09-27] MEDS ORDERED: LORazepam Inj 2mg/ml 1ml IV PRN (12:45)
[2017-09-27] MEDS ORDERED: Promethazine/Codeine 5ml UD ORAL PRN (12:45)
[2017-09-27] MEDS ORDERED: Albuterol/Ipratropium 3ml neb HHN PRN (14:30)
[2017-09-27] MEDS ORDERED: Morphine Sulfate 4mg/ml Inj IVP PRN (14:30)
--- NOTE | 2017-09-27 15:46 | Internal Med Progress Note ---
Subjective Date of Service: Sep 27, 2017 Physician Name Naveed Mcleod Attending Physician Agus Carvajal MD Current Medications Medications (Trade) Dose Ordered Sig/Carmen Route PRN Reason Start Time Stop Time Status Last Admin Dose Admin Albuterol/ Ipratropium (Albuterol/ Ipratropium) 3 ml Q4H PRN HHN dyspnea 09/27/17 14:30 09/28/17 18:29 Benazepril HCl (Lotensin) 10 mg DAILY ORAL 09/28/17 09:00 10/24/17 08:59 Dextrose (Dextrose 50%) STAT PRN IV Hypoglycemia 09/27/17 12:45 10/23/17 12:44 Levetiracetam (Keppra) 250 mg DAILY ORAL 09/28/17 09:00 10/24/17 08:59 Levetiracetam (Keppra) 500 mg QHS ORAL 09/27/17 21:00 10/23/17 22:29 Levofloxacin (Levaquin) 750 mg Q24H ORAL 09/27/17 14:00 10/04/17 13:59 09/27/17 13:21 Lorazepam (Ativan 2mg/ml 1ml) 0.5 mg Q4H PRN IV For Anxiety 09/27/17 12:45 09/30/17 12:44 Methylprednisolone Sodium Succinate (Solu-MEDROL) 60 mg DAILY IV 09/28/17 09:00 10/24/17 00:29 Morphine Sulfate (Morphine Sulfate) 2 mg Q4H PRN IVP Severe Pain (Pain Scale 7-10) 09/27/17 14:30 09/30/17 18:29 Nitroglycerin (Ntg) 0.4 mg Q5M X 3 DOSES PRN SL Prn Chest Pain 09/27/17 12:45 10/23/17 20:59 Ondansetron HCl (Zofran) 4 mg Q6H PRN IVP Nausea & Vomiting 09/27/17 12:45 10/23/17 12:44 Promethazine HCl/ Codeine (Phenergan with Codeine) 5 ml Q6H PRN ORAL cough 09/27/17 12:45 10/23/17 12:44 Rivaroxaban (Xarelto) 15 mg DAILY ORAL 09/28/17 09:00 10/24/17 08:59 Temazepam (Restoril) 15 mg HSPRN PRN ORAL Insomnia 09/27/17 21:00 09/30/17 20:59 Theophylline (Danilo-Dur) 100 mg EVERY 12 HOURS ORAL 09/27/17 21:00 10/23/17 21:59 Allergies: Coded Allergies: No Known Allergies (Unverified , 03/14/15) ROS Limited/Unobtainable: Yes Subjective 86 YO F admitted with shortness of Breath, now pneumonia. Cover for Int Skinny-Dr Carvajal Objective Last Vital Signs Date Time Temp Pulse Resp B/P (MAP) Pulse Ox O2 Delivery O2 Flow Rate FiO2 09/27/17 12:45 101 09/27/17 12:00 97.3 20 123/72 92 Room Air 97.3 09/27/17 11:05 21 09/24/17 12:01 2.0 Laboratory Tests Test 09/27/17 05:25 White Blood Count 8.8 K/UL (4.8-10.8) Red Blood Count 3.82 M/UL (4.20-5.40) L Hemoglobin 12.1 G/DL (12.0-16.0) Hematocrit 35.6 % (37.0-47.0) L Mean Corpuscular Volume 93 FL (80-99) Mean Corpuscular Hemoglobin 31.6 PG (27.0-31.0) H Mean Corpuscular Hemoglobin Concent 33.9 G/DL (32.0-36.0) Red Cell Distribution Width 12.4 % (11.6-14.8) Platelet Count 287 K/UL (150-450) Mean Platelet Volume 5.9 FL (6.5-10.1) L Neutrophils (%) (Auto) 44.8 % (45.0-75.0) L Lymphocytes (%) (Auto) 38.9 % (20.0-45.0) Monocytes (%) (Auto) 15.3 % (1.0-10.0) H Eosinophils (%) (Auto) 0.3 % (0.0-3.0) Basophils (%) (Auto) 0.6 % (0.0-2.0) Sodium Level 142 MMOL/L (136-145) Potassium Level 3.8 MMOL/L (3.5-5.1) Chloride Level 107 MMOL/L (98-107) Carbon Dioxide Level 30 MMOL/L (21-32) Anion Gap 5 mmol/L (5-15) Blood Urea Nitrogen 24 mg/dL (7-18) H Creatinine 0.8 MG/DL (0.55-1.30) Estimat Glomerular Filtration Rate mL/min (>60) Glucose Level 107 MG/DL (74-106) H Calcium Level 9.2 MG/DL (8.5-10.1) Intake and Output 09/26/17 09/27/17 19:00 07:00 Intake Total 1200 ml Balance 1200 ml Intake Oral 1200 ml # Voids 4 5 Objective General Appearance: WD/WN, no apparent distress, alert EENT: PERRL/EOMI, normal ENT inspection, TMs normal Neck: non-tender, normal alignment, supple Cardiovascular: normal peripheral pulses, normal rate, regular rhythm, no gallop/murmur, no JVD Respiratory/Chest: chest wall non-tender, respiratory distress, crackles/rales , rhonchi - bilaterally, expiratory wheezing Abdomen: normal bowel sounds, non tender, soft, no organomegaly, no mass, abnormal bowel sounds Extremities: normal range of motion, non-tender Neurologic: caser shoe parts II-XII grossly normal, no motor/sensory deficits Skin: normal pigmentation, warm/dry Assessment/Plan Problem List: (1) SOB (shortness of breath) Assessment & Plan: Due to pneumonia (2) Pneumonia Assessment & Plan: See ID and pulmonary note. Continue IV levaquin, solumedrol and theophylline (3) Seizure disorder Assessment & Plan: Continue keppra (4) HTN (hypertension) Assessment & Plan: Continue lotensin (5) Glaucoma (6) Deep venous thrombosis of leg Assessment & Plan: Continue xarelto Status: progressing Assessment/Plan Discharge planning: [facility] NAVEED Ferrer Sep 27, 2017 15:46
[2017-09-27 16:00] VITALS: BP 101/62
[2017-09-27 20:00] VITALS: BP 147/65
[2017-09-28] VITALS: BP 107/67
[2017-09-28 04:00] VITALS: BP 111/73
[2017-09-28 08:00] VITALS: BP 128/86
[2017-09-28 08:13] LABS: BASOPHILS % (AUTO) 0.6 % (0.0-2.0); EOSINOPHILS % (AUTO) 0.5 % (0.0-3.0); HEMATOCRIT 34.5 % (37.0-47.0); HEMOGLOBIN 11.8 G/DL (12.0-16.0); MEAN CORPUSCULAR VOLUME 93 FL (80-99); MONOCYTES % (AUTO) 10.6 % (1.0-10.0); NEUTROPHILS % (AUTO) 47.4 % (45.0-75.0); PLATELET COUNT 266 K/UL (150-450); RED BLOOD COUNT 3.72 M/UL (4.20-5.40); RED CELL DISTRIBUTION WIDTH 12.1 % (11.6-14.8); WHITE BLOOD COUNT 8.4 K/UL (4.8-10.8)
[2017-09-28 08:37] LABS: ALANINE AMINOTRANSFERASE 21 U/L (12-78); ALBUMIN 2.8 G/DL (3.4-5.0); ALBUMIN/GLOBULIN RATIO 0.9 (1.0-2.7); ALKALINE PHOSPHATASE 56 U/L (46-116); ANION GAP 6 mmol/L (5-15); ASPARTATE AMINO TRANSFERASE 15 U/L (15-37); BILIRUBIN,TOTAL 0.2 MG/DL (0.2-1.0); BLOOD UREA NITROGEN 29 mg/dL (7-18); CARBON DIOXIDE 28 MMOL/L (21-32); CHLORIDE 107 MMOL/L (98-107); CREATININE 0.9 MG/DL (0.55-1.30); POTASSIUM 3.7 MMOL/L (3.5-5.1); SODIUM 141 MMOL/L (136-145)
--- NOTE | 2017-09-28 09:58 | Diagnostic Imaging Report ---
Indication: Reason For Exam: DYSPNEA Technique: XRAY Chest 1v Comparison:09/23/2017 Findings: Linear density is now noted in the left lung base. The cardiomediastinal silhouette is unchanged. Remainder the lungs are clear. No pleural fluid. Impression: Atelectasis in the left base. No other change from prior exam.
--- NOTE | 2017-09-28 10:02 | Diagnostic Imaging Report ---
Indication: Reason For Exam: DYSPNEA Technique: XRAY Chest 1v. Comparison: 09/27/2017 Findings: The cardiomediastinal silhouette is unchanged. No new infiltrates are identified. Impression: No significant change from prior examination.
[2017-09-28] MEDS: Benazepril 10mg tab ORAL SCH (11:03)
[2017-09-28] MEDS: Theophylline ER 100mg ORAL SCH ×2 (11:03→21:55)
[2017-09-28] MEDS: Solu-MEDROL 125mg Inj IV SCH (11:03)
[2017-09-28] MEDS: Xarelto 15mg tab ORAL SCH (11:04)
[2017-09-28 12:00] VITALS: BP 121/85
--- NOTE | 2017-09-28 13:22 | Pulmonology Progress Note ---
Assessment/Plan Problems: (1) Respiratory distress (2) Bronchitis (3) Viral syndrome (4) Hypertension (5) Cerebrovascular accident (CVA) Assessment/Plan Less wheezing today stat cxr didn't show any acute finding yesterday continue same dose of steroids check sputum, echo, labs taper sterids, solumedrol qd continue abx, on levofloxacin, switched to po ID evaluation appreciated. dvt prophylaxis Subjective ROS Limited/Unobtainable: No Interval Events: less wheezing than yesterday, Allergies: Coded Allergies: No Known Allergies (Unverified , 03/14/15) Objective Last 24 Hour Vital Signs Date Time Temp Pulse Resp B/P (MAP) Pulse Ox O2 Delivery O2 Flow Rate FiO2 09/28/17 11:03 128/86 09/28/17 07:35 67 20 Room Air 21 09/28/17 04:00 97.5 62 19 111/73 92 Room Air 97.5 09/28/17 04:00 67 09/28/17 00:00 98.7 74 21 107/67 94 Room Air 98.7 09/28/17 00:00 65 09/27/17 20:00 102 09/27/17 20:00 98.1 100 19 147/65 98 Room Air 98.1 09/27/17 19:30 92 20 Room Air 21 09/27/17 16:00 99 09/27/17 16:00 97.5 95 20 101/62 95 Room Air 97.5 Intake and Output 09/27/17 09/28/17 18:59 06:59 Intake Total 120 ml Balance 120 ml Intake Oral 120 ml # Voids 3 Objective General Appearance: WD/WN Lines, tubes and drains: peripheral HEENT: normocephalic, atraumatic Neck: non-tender, normal alignment Respiratory/Chest: chest wall non-tender, lungs clear, loud expiratory wheezing Breasts: no masses Cardiovascular/Chest: normal peripheral pulses Genitourinary/Rectal: normal genital exam Extremities: normal range of motion, normal inspection, non-pitting Laboratory Tests 09/28/17 07:00: White Blood Count 8.4, Red Blood Count 3.72L, Hemoglobin 11.8L, Hematocrit 34.5L , Mean Corpuscular Volume 93, Mean Corpuscular Hemoglobin 31.8H, Mean Corpuscular Hemoglobin Concent 34.3, Red Cell Distribution Width 12.1, Platelet Count 266, Mean Platelet Volume 5.7L, Neutrophils (%) (Auto) 47.4, Lymphocytes ( %) (Auto) 41.0, Monocytes (%) (Auto) 10.6H, Eosinophils (%) (Auto) 0.5, Basophils (%) (Auto) 0.6, Sodium Level 141, Potassium Level 3.7, Chloride Level 107, Carbon Dioxide Level 28, Anion Gap 6, Blood Urea Nitrogen 29H, Creatinine 0.9, Estimat Glomerular Filtration Rate , Glucose Level 107H, Calcium Level 9.0 , Total Bilirubin 0.2, Aspartate Amino Transf (AST/SGOT) 15, Alanine Aminotransferase (ALT/SGPT) 21, Alkaline Phosphatase 56, Pro-B-Type Natriuretic Peptide 100, Total Protein 6.0L, Albumin 2.8L, Globulin 3.2, Albumin/Globulin Ratio 0.9L Current Medications Medications (Trade) Dose Ordered Sig/Carmen Route PRN Reason Start Time Stop Time Status Last Admin Dose Admin Albuterol/ Ipratropium (Albuterol/ Ipratropium) 3 ml Q4H PRN HHN dyspnea 09/27/17 14:30 09/28/17 18:29 Benazepril HCl (Lotensin) 10 mg DAILY ORAL 09/28/17 09:00 10/24/17 08:59 09/28/17 11:03 Dextrose (Dextrose 50%) STAT PRN IV Hypoglycemia 09/27/17 12:45 10/23/17 12:44 Levetiracetam (Keppra) 250 mg DAILY ORAL 09/28/17 09:00 10/24/17 08:59 Levetiracetam (Keppra) 500 mg QHS ORAL 09/27/17 21:00 10/23/17 22:29 09/28/17 11:05 Levofloxacin (Levaquin) 750 mg Q24H ORAL 09/27/17 14:00 09/28/17 23:59 09/27/17 13:21 Lorazepam (Ativan 2mg/ml 1ml) 0.5 mg Q4H PRN IV For Anxiety 09/27/17 12:45 09/30/17 12:44 Methylprednisolone Sodium Succinate (Solu-MEDROL) 60 mg DAILY IV 09/28/17 09:00 10/24/17 00:29 09/28/17 11:03 Morphine Sulfate (Morphine Sulfate) 2 mg Q4H PRN IVP Severe Pain (Pain Scale 7-10) 09/27/17 14:30 09/30/17 18:29 Nitroglycerin (Ntg) 0.4 mg Q5M X 3 DOSES PRN SL Prn Chest Pain 09/27/17 12:45 10/23/17 20:59 Ondansetron HCl (Zofran) 4 mg Q6H PRN IVP Nausea & Vomiting 09/27/17 12:45 10/23/17 12:44 Promethazine HCl/ Codeine (Phenergan with Codeine) 5 ml Q6H PRN ORAL cough 09/27/17 12:45 10/23/17 12:44 Rivaroxaban (Xarelto) 15 mg DAILY ORAL 09/28/17 09:00 10/24/17 08:59 09/28/17 11:04 Temazepam (Restoril) 15 mg HSPRN PRN ORAL Insomnia 09/27/17 21:00 09/30/17 20:59 Theophylline (Danilo-Dur) 100 mg EVERY 12 HOURS ORAL 09/27/17 21:00 10/23/17 21:59 09/28/17 11:03 MATTHEW AARON Sep 28, 2017 13:21
--- NOTE | 2017-09-28 14:14 | Internal Med Progress Note ---
Subjective Date of Service: Sep 28, 2017 Physician Name McleodNaveed Attending Physician Agus Carvajal MD Current Medications Medications (Trade) Dose Ordered Sig/Carmen Route PRN Reason Start Time Stop Time Status Last Admin Dose Admin Albuterol/ Ipratropium (Albuterol/ Ipratropium) 3 ml Q4H PRN HHN dyspnea 09/27/17 14:30 09/28/17 18:29 Benazepril HCl (Lotensin) 10 mg DAILY ORAL 09/28/17 09:00 10/24/17 08:59 09/28/17 11:03 Dextrose (Dextrose 50%) STAT PRN IV Hypoglycemia 09/27/17 12:45 10/23/17 12:44 Levetiracetam (Keppra) 250 mg DAILY ORAL 09/28/17 09:00 10/24/17 08:59 Levetiracetam (Keppra) 500 mg QHS ORAL 09/27/17 21:00 10/23/17 22:29 09/28/17 11:05 Levofloxacin (Levaquin) 750 mg Q24H ORAL 09/27/17 14:00 09/28/17 23:59 09/27/17 13:21 Lorazepam (Ativan 2mg/ml 1ml) 0.5 mg Q4H PRN IV For Anxiety 09/27/17 12:45 09/30/17 12:44 Methylprednisolone Sodium Succinate (Solu-MEDROL) 60 mg DAILY IV 09/28/17 09:00 10/24/17 00:29 09/28/17 11:03 Morphine Sulfate (Morphine Sulfate) 2 mg Q4H PRN IVP Severe Pain (Pain Scale 7-10) 09/27/17 14:30 09/30/17 18:29 Nitroglycerin (Ntg) 0.4 mg Q5M X 3 DOSES PRN SL Prn Chest Pain 09/27/17 12:45 10/23/17 20:59 Ondansetron HCl (Zofran) 4 mg Q6H PRN IVP Nausea & Vomiting 09/27/17 12:45 10/23/17 12:44 Promethazine HCl/ Codeine (Phenergan with Codeine) 5 ml Q6H PRN ORAL cough 09/27/17 12:45 10/23/17 12:44 Rivaroxaban (Xarelto) 15 mg DAILY ORAL 09/28/17 09:00 10/24/17 08:59 09/28/17 11:04 Temazepam (Restoril) 15 mg HSPRN PRN ORAL Insomnia 09/27/17 21:00 09/30/17 20:59 Theophylline (Danilo-Dur) 100 mg EVERY 12 HOURS ORAL 09/27/17 21:00 10/23/17 21:59 09/28/17 11:03 Allergies: Coded Allergies: No Known Allergies (Unverified , 03/14/15) ROS Limited/Unobtainable: No Constitutional: Reports: no symptoms HEENT: Reports: no symptoms Cardiovascular: Reports: no symptoms Respiratory: Reports: shortness of breath Gastrointestinal/Abdominal: Reports: no symptoms Genitourinary: Reports: no symptoms Neurologic/Psychiatric: Reports: no symptoms Subjective 86 YO F admitted with shortness of Breath, now pneumonia. Transferred from for worsening shortness of breath. Cover for Int Skinny-Dr Carvajal Objective Last Vital Signs Date Time Temp Pulse Resp B/P (MAP) Pulse Ox O2 Delivery O2 Flow Rate FiO2 09/28/17 11:03 128/86 09/28/17 07:35 67 20 Room Air 21 09/28/17 04:00 97.5 92 97.5 09/24/17 12:01 2.0 Laboratory Tests Test 09/28/17 07:00 White Blood Count 8.4 K/UL (4.8-10.8) Red Blood Count 3.72 M/UL (4.20-5.40) L Hemoglobin 11.8 G/DL (12.0-16.0) L Hematocrit 34.5 % (37.0-47.0) L Mean Corpuscular Volume 93 FL (80-99) Mean Corpuscular Hemoglobin 31.8 PG (27.0-31.0) H Mean Corpuscular Hemoglobin Concent 34.3 G/DL (32.0-36.0) Red Cell Distribution Width 12.1 % (11.6-14.8) Platelet Count 266 K/UL (150-450) Mean Platelet Volume 5.7 FL (6.5-10.1) L Neutrophils (%) (Auto) 47.4 % (45.0-75.0) Lymphocytes (%) (Auto) 41.0 % (20.0-45.0) Monocytes (%) (Auto) 10.6 % (1.0-10.0) H Eosinophils (%) (Auto) 0.5 % (0.0-3.0) Basophils (%) (Auto) 0.6 % (0.0-2.0) Sodium Level 141 MMOL/L (136-145) Potassium Level 3.7 MMOL/L (3.5-5.1) Chloride Level 107 MMOL/L (98-107) Carbon Dioxide Level 28 MMOL/L (21-32) Anion Gap 6 mmol/L (5-15) Blood Urea Nitrogen 29 mg/dL (7-18) H Creatinine 0.9 MG/DL (0.55-1.30) Estimat Glomerular Filtration Rate mL/min (>60) Glucose Level 107 MG/DL (74-106) H Calcium Level 9.0 MG/DL (8.5-10.1) Total Bilirubin 0.2 MG/DL (0.2-1.0) Aspartate Amino Transf (AST/SGOT) 15 U/L (15-37) Alanine Aminotransferase (ALT/SGPT) 21 U/L (12-78) Alkaline Phosphatase 56 U/L (46-116) Pro-B-Type Natriuretic Peptide 100 pg/mL (0-125) Total Protein 6.0 G/DL (6.4-8.2) L Albumin 2.8 G/DL (3.4-5.0) L Globulin 3.2 g/dL Albumin/Globulin Ratio 0.9 (1.0-2.7) L Intake and Output 09/27/17 09/28/17 19:00 07:00 Intake Total 120 ml Balance 120 ml Intake Oral 120 ml # Voids 3 Objective General Appearance: WD/WN, no apparent distress, alert EENT: PERRL/EOMI, normal ENT inspection, TMs normal Neck: non-tender, normal alignment, supple Cardiovascular: normal peripheral pulses, normal rate, regular rhythm, no gallop/murmur, no JVD Respiratory/Chest: Wheezing; chest wall non-tender, respiratory distress, crackles/rales, rhonchi - bilaterally, expiratory wheezing Abdomen: normal bowel sounds, non tender, soft, no organomegaly, no mass, abnormal bowel sounds Extremities: normal range of motion, non-tender Neurologic: lap winder II-XII grossly normal, no motor/sensory deficits Skin: normal pigmentation, warm/dry Assessment/Plan Problem List: (1) SOB (shortness of breath) Assessment & Plan: Due to pneumonia (2) Pneumonia Assessment & Plan: See ID and pulmonary note. Continue IV levaquin, solumedrol and theophylline. Duonebs scheduled q 4 hr. (3) Seizure disorder Assessment & Plan: Continue keppra (4) HTN (hypertension) Assessment & Plan: Continue lotensin (5) Glaucoma (6) Deep venous thrombosis of leg Assessment & Plan: Continue xarelto Assessment/Plan Hold Discharge planning: [facility] [place] NAVEED Whelan Sep 28, 2017 14:14
[2017-09-28] MEDS: Albuterol/Ipratropium 3ml neb HHN SCH ×3 (15:09→23:00)
[2017-09-28 16:00] VITALS: BP 120/76
[2017-09-28 20:00] VITALS: BP 123/72
[2017-09-29] VITALS: BP 134/75
[2017-09-29] MEDS: Albuterol/Ipratropium 3ml neb HHN SCH ×4 (03:00→15:45)
[2017-09-29 04:00] VITALS: BP 110/72
[2017-09-29 08:00] VITALS: BP 129/87
[2017-09-29] MEDS: Theophylline ER 100mg ORAL SCH (08:00)
[2017-09-29] MEDS: Xarelto 15mg tab ORAL SCH (08:00)
[2017-09-29] MEDS: Solu-MEDROL 125mg Inj IV SCH (08:00)
[2017-09-29] MEDS: Benazepril 10mg tab ORAL SCH (08:00)
[2017-09-29 08:31] LABS: BASOPHILS % (AUTO) 0.4 % (0.0-2.0); EOSINOPHILS % (AUTO) 0.6 % (0.0-3.0); HEMATOCRIT 37.7 % (37.0-47.0); HEMOGLOBIN 12.6 G/DL (12.0-16.0); LYMPHOCYTES % (AUTO) 38.2 % (20.0-45.0); MEAN CORPUSCULAR VOLUME 92 FL (80-99); MONOCYTES % (AUTO) 9.9 % (1.0-10.0); PLATELET COUNT 297 K/UL (150-450); RED BLOOD COUNT 4.11 M/UL (4.20-5.40); RED CELL DISTRIBUTION WIDTH 12.3 % (11.6-14.8); WHITE BLOOD COUNT 11.2 K/UL (4.8-10.8)
[2017-09-29 08:50] LABS: ALANINE AMINOTRANSFERASE 21 U/L (12-78); ALBUMIN/GLOBULIN RATIO 0.9 (1.0-2.7); ALKALINE PHOSPHATASE 63 U/L (46-116); ANION GAP 8 mmol/L (5-15); ASPARTATE AMINO TRANSFERASE 14 U/L (15-37); BILIRUBIN,TOTAL 0.3 MG/DL (0.2-1.0); BLOOD UREA NITROGEN 23 mg/dL (7-18); CALCIUM 9.2 MG/DL (8.5-10.1); CARBON DIOXIDE 28 MMOL/L (21-32); CHLORIDE 105 MMOL/L (98-107); CREATININE 0.8 MG/DL (0.55-1.30); POTASSIUM 3.3 MMOL/L (3.5-5.1); SODIUM 141 MMOL/L (136-145)
--- NOTE | 2017-09-29 10:35 | Infectious Diseases Prog Note ---
Assessment/Plan Assessment/Plan ASSESSMENT: The patient is an 86-year-old female with; Cough, shortness of breath, improving pneumonia/bronchitis , SP Rx Chest x-ray: left costophrenic sulcus and streaking of left basilar opacities. Afebrile. Normal white blood cells Influenza A and B negative Seizure disorder. CVA with right-sided weakness. CHF. Hyperlipidemia. Hypertension. History of right shoulder fracture PLAN: monitor pt off of AB Rx 09/28 SP Levaquin d# 5/ 5 , Monitor CBC Monitor BMP. Monitor chest x-ray. Subjective Constitutional: Denies: no symptoms, fever, chills, fatigue, anorexia, drenching sweats, other Allergies: Coded Allergies: No Known Allergies (Unverified , 03/14/15) Subjective comfortable Objective Vital Signs Last 24 Hour Vital Signs Date Time Temp Pulse Resp B/P (MAP) Pulse Ox O2 Delivery O2 Flow Rate FiO2 09/29/17 08:00 80 09/29/17 08:00 96.6 77 19 129/87 95 Room Air 96.6 09/29/17 08:00 129/87 09/29/17 07:49 Room Air 21 09/29/17 07:49 82 18 Room Air 21 09/29/17 07:49 Room Air 21 09/29/17 04:00 97.2 72 22 110/72 94 Room Air 97.2 09/29/17 04:00 71 09/29/17 03:36 Room Air 21 09/29/17 03:36 Room Air 21 09/29/17 00:00 89 09/29/17 00:00 96.4 79 20 134/75 96 Room Air 96.4 09/28/17 23:37 Room Air 21 09/28/17 23:36 Room Air 21 09/28/17 20:00 107 09/28/17 20:00 97.7 70 18 123/72 93 Room Air 97.7 09/28/17 19:40 88 16 96 Room Air 21 09/28/17 19:30 80 20 Room Air 21 09/28/17 19:30 84 16 93 Room Air 21 09/28/17 16:00 97.3 70 18 120/76 95 Room Air 97.3 09/28/17 16:00 114 09/28/17 15:11 86 16 99 Room Air 21 09/28/17 15:00 80 16 94 Room Air 21 09/28/17 12:00 86 09/28/17 12:00 96.8 65 18 121/85 95 Room Air 96.8 09/28/17 11:03 128/86 Height (Feet): 5 Height (Inches): 4.00 Weight (Pounds): 150 HEENT: anicteric Respiratory/Chest: no respiratory distress Cardiovascular: normal rate Abdomen: no organomegaly Laboratory Tests Test 09/29/17 06:20 White Blood Count 11.2 K/UL (4.8-10.8) H Red Blood Count 4.11 M/UL (4.20-5.40) L Hemoglobin 12.6 G/DL (12.0-16.0) Hematocrit 37.7 % (37.0-47.0) Mean Corpuscular Volume 92 FL (80-99) Mean Corpuscular Hemoglobin 30.8 PG (27.0-31.0) Mean Corpuscular Hemoglobin Concent 33.6 G/DL (32.0-36.0) Red Cell Distribution Width 12.3 % (11.6-14.8) Platelet Count 297 K/UL (150-450) Mean Platelet Volume 6.0 FL (6.5-10.1) L Neutrophils (%) (Auto) 51.0 % (45.0-75.0) Lymphocytes (%) (Auto) 38.2 % (20.0-45.0) Monocytes (%) (Auto) 9.9 % (1.0-10.0) Eosinophils (%) (Auto) 0.6 % (0.0-3.0) Basophils (%) (Auto) 0.4 % (0.0-2.0) Sodium Level 141 MMOL/L (136-145) Potassium Level 3.3 MMOL/L (3.5-5.1) L Chloride Level 105 MMOL/L (98-107) Carbon Dioxide Level 28 MMOL/L (21-32) Anion Gap 8 mmol/L (5-15) Blood Urea Nitrogen 23 mg/dL (7-18) H Creatinine 0.8 MG/DL (0.55-1.30) Estimat Glomerular Filtration Rate mL/min (>60) Glucose Level 101 MG/DL (74-106) Calcium Level 9.2 MG/DL (8.5-10.1) Phosphorus Level 3.0 MG/DL (2.5-4.9) Magnesium Level 2.0 MG/DL (1.8-2.4) Total Bilirubin 0.3 MG/DL (0.2-1.0) Aspartate Amino Transf (AST/SGOT) 14 U/L (15-37) L Alanine Aminotransferase (ALT/SGPT) 21 U/L (12-78) Alkaline Phosphatase 63 U/L (46-116) Total Protein 6.4 G/DL (6.4-8.2) Albumin 3.0 G/DL (3.4-5.0) L Globulin 3.4 g/dL Albumin/Globulin Ratio 0.9 (1.0-2.7) L Current Medications Medications (Trade) Dose Ordered Sig/Carmen Route PRN Reason Start Time Stop Time Status Last Admin Dose Admin Albuterol/ Ipratropium (Albuterol/ Ipratropium) 3 ml Q4HRT HHN 09/28/17 15:00 10/03/17 14:59 09/28/17 20:40 Benazepril HCl (Lotensin) 10 mg DAILY ORAL 09/28/17 09:00 10/24/17 08:59 09/29/17 08:00 Dextrose (Dextrose 50%) STAT PRN IV Hypoglycemia 09/27/17 12:45 10/23/17 12:44 Levetiracetam (Keppra) 250 mg DAILY ORAL 09/28/17 09:00 10/24/17 08:59 09/29/17 08:01 Levetiracetam (Keppra) 500 mg QHS ORAL 09/27/17 21:00 10/23/17 22:29 09/28/17 11:05 Lorazepam (Ativan 2mg/ml 1ml) 0.5 mg Q4H PRN IV For Anxiety 09/27/17 12:45 09/30/17 12:44 Methylprednisolone Sodium Succinate (Solu-MEDROL) 60 mg DAILY IV 09/28/17 09:00 10/24/17 00:29 09/29/17 08:00 Morphine Sulfate (Morphine Sulfate) 2 mg Q4H PRN IVP Severe Pain (Pain Scale 7-10) 09/27/17 14:30 09/30/17 18:29 Nitroglycerin (Ntg) 0.4 mg Q5M X 3 DOSES PRN SL Prn Chest Pain 09/27/17 12:45 10/23/17 20:59 Ondansetron HCl (Zofran) 4 mg Q6H PRN IVP Nausea & Vomiting 09/27/17 12:45 10/23/17 12:44 Promethazine HCl/ Codeine (Phenergan with Codeine) 5 ml Q6H PRN ORAL cough 09/27/17 12:45 10/23/17 12:44 Rivaroxaban (Xarelto) 15 mg DAILY ORAL 09/28/17 09:00 10/24/17 08:59 09/29/17 08:00 Temazepam (Restoril) 15 mg HSPRN PRN ORAL Insomnia 09/27/17 21:00 09/30/17 20:59 Theophylline (Danilo-Dur) 100 mg EVERY 12 HOURS ORAL 09/27/17 21:00 10/23/17 21:59 09/29/17 08:00 ANNIE POTTER M.D. Sep 29, 2017 10:35
[2017-09-29] MEDS ORDERED: Levofloxacin 500mg tab ORAL SCH (11:45)
--- NOTE | 2017-09-29 11:47 | Internal Med Progress Note ---
Subjective Date of Service: Sep 29, 2017 Physician Name Sidhu,Naveed Attending Physician Agus Carvajal MD Current Medications Medications (Trade) Dose Ordered Sig/Carmen Route PRN Reason Start Time Stop Time Status Last Admin Dose Admin Albuterol/ Ipratropium (Albuterol/ Ipratropium) 3 ml Q4HRT HHN 09/28/17 15:00 10/03/17 14:59 09/28/17 20:40 Benazepril HCl (Lotensin) 10 mg DAILY ORAL 09/28/17 09:00 10/24/17 08:59 09/29/17 08:00 Dextrose (Dextrose 50%) STAT PRN IV Hypoglycemia 09/27/17 12:45 10/23/17 12:44 Levetiracetam (Keppra) 250 mg DAILY ORAL 09/28/17 09:00 10/24/17 08:59 09/29/17 08:01 Levetiracetam (Keppra) 500 mg QHS ORAL 09/27/17 21:00 10/23/17 22:29 09/28/17 11:05 Lorazepam (Ativan 2mg/ml 1ml) 0.5 mg Q4H PRN IV For Anxiety 09/27/17 12:45 09/30/17 12:44 Methylprednisolone Sodium Succinate (Solu-MEDROL) 60 mg DAILY IV 09/28/17 09:00 10/24/17 00:29 09/29/17 08:00 Morphine Sulfate (Morphine Sulfate) 2 mg Q4H PRN IVP Severe Pain (Pain Scale 7-10) 09/27/17 14:30 09/30/17 18:29 Nitroglycerin (Ntg) 0.4 mg Q5M X 3 DOSES PRN SL Prn Chest Pain 09/27/17 12:45 10/23/17 20:59 Ondansetron HCl (Zofran) 4 mg Q6H PRN IVP Nausea & Vomiting 09/27/17 12:45 10/23/17 12:44 Potassium Chloride (K-Dur) 40 meq ONCE ONCE ORAL 09/29/17 11:45 09/29/17 11:46 Promethazine HCl/ Codeine (Phenergan with Codeine) 5 ml Q6H PRN ORAL cough 09/27/17 12:45 10/23/17 12:44 Rivaroxaban (Xarelto) 15 mg DAILY ORAL 09/28/17 09:00 10/24/17 08:59 09/29/17 08:00 Temazepam (Restoril) 15 mg HSPRN PRN ORAL Insomnia 09/27/17 21:00 09/30/17 20:59 Theophylline (Danilo-Dur) 100 mg EVERY 12 HOURS ORAL 09/27/17 21:00 10/23/17 21:59 09/29/17 08:00 Allergies: Coded Allergies: No Known Allergies (Unverified , 03/14/15) ROS Limited/Unobtainable: No Constitutional: Reports: no symptoms HEENT: Reports: no symptoms Cardiovascular: Reports: no symptoms Respiratory: Reports: cough Gastrointestinal/Abdominal: Reports: no symptoms Genitourinary: Reports: no symptoms Neurologic/Psychiatric: Reports: no symptoms Subjective 86 YO F admitted with shortness of Breath, now pneumonia. C/O cough. Cover for Int Skinny-Dr Carvajal Objective Last Vital Signs Date Time Temp Pulse Resp B/P (MAP) Pulse Ox O2 Delivery O2 Flow Rate FiO2 09/29/17 08:00 80 09/29/17 08:00 96.6 19 129/87 95 Room Air 96.6 09/29/17 07:49 21 09/24/17 12:01 2.0 Laboratory Tests Test 09/29/17 06:20 White Blood Count 11.2 K/UL (4.8-10.8) H Red Blood Count 4.11 M/UL (4.20-5.40) L Hemoglobin 12.6 G/DL (12.0-16.0) Hematocrit 37.7 % (37.0-47.0) Mean Corpuscular Volume 92 FL (80-99) Mean Corpuscular Hemoglobin 30.8 PG (27.0-31.0) Mean Corpuscular Hemoglobin Concent 33.6 G/DL (32.0-36.0) Red Cell Distribution Width 12.3 % (11.6-14.8) Platelet Count 297 K/UL (150-450) Mean Platelet Volume 6.0 FL (6.5-10.1) L Neutrophils (%) (Auto) 51.0 % (45.0-75.0) Lymphocytes (%) (Auto) 38.2 % (20.0-45.0) Monocytes (%) (Auto) 9.9 % (1.0-10.0) Eosinophils (%) (Auto) 0.6 % (0.0-3.0) Basophils (%) (Auto) 0.4 % (0.0-2.0) Sodium Level 141 MMOL/L (136-145) Potassium Level 3.3 MMOL/L (3.5-5.1) L Chloride Level 105 MMOL/L (98-107) Carbon Dioxide Level 28 MMOL/L (21-32) Anion Gap 8 mmol/L (5-15) Blood Urea Nitrogen 23 mg/dL (7-18) H Creatinine 0.8 MG/DL (0.55-1.30) Estimat Glomerular Filtration Rate mL/min (>60) Glucose Level 101 MG/DL (74-106) Calcium Level 9.2 MG/DL (8.5-10.1) Phosphorus Level 3.0 MG/DL (2.5-4.9) Magnesium Level 2.0 MG/DL (1.8-2.4) Total Bilirubin 0.3 MG/DL (0.2-1.0) Aspartate Amino Transf (AST/SGOT) 14 U/L (15-37) L Alanine Aminotransferase (ALT/SGPT) 21 U/L (12-78) Alkaline Phosphatase 63 U/L (46-116) Total Protein 6.4 G/DL (6.4-8.2) Albumin 3.0 G/DL (3.4-5.0) L Globulin 3.4 g/dL Albumin/Globulin Ratio 0.9 (1.0-2.7) L Intake and Output 09/28/17 09/29/17 19:00 07:00 Intake Total 195 ml Balance 195 ml Intake Oral 195 ml # Voids 3 Objective General Appearance: WD/WN, no apparent distress, alert EENT: PERRL/EOMI, normal ENT inspection, TMs normal Neck: non-tender, normal alignment, supple Cardiovascular: normal peripheral pulses, normal rate, regular rhythm, no gallop/murmur, no JVD Respiratory/Chest: Wheezing; chest wall non-tender, respiratory distress, crackles/rales, rhonchi - bilaterally, expiratory wheezing Abdomen: normal bowel sounds, non tender, soft, no organomegaly, no mass, abnormal bowel sounds Extremities: normal range of motion, non-tender Neurologic: side show entertainer II-XII grossly normal, no motor/sensory deficits Skin: normal pigmentation, warm/dry Assessment/Plan Problem List: (1) SOB (shortness of breath) Assessment & Plan: Due to pneumonia (2) Pneumonia Assessment & Plan: See ID and pulmonary note. Continue IV levaquin, solumedrol and theophylline. Duonebs scheduled q 4 hr. (3) Seizure disorder Assessment & Plan: Continue keppra (4) HTN (hypertension) Assessment & Plan: Continue lotensin (5) Glaucoma (6) Deep venous thrombosis of leg Assessment & Plan: Continue xarelto Status: progressing Assessment/Plan [facility] NAVEED SIDHU Sep 29, 2017 11:46
[2017-09-29 12:00] VITALS: BP 105/77
[2017-09-29] MEDS ORDERED: KEPPRA500 M3 ORAL (12:52)
[2017-09-29] MEDS ORDERED: KEPPRA500 MG ORAL (12:52)
[2017-09-29] MEDS ORDERED: THEOPHYLLINE A100 MG ORAL (12:52)
--- NOTE | 2017-09-29 12:53 | Pulmonology Progress Note ---
Assessment/Plan Problems: (1) Respiratory distress (2) Bronchitis (3) Viral syndrome (4) Hypertension (5) Cerebrovascular accident (CVA) Assessment/Plan Less wheezing today change steroids to PO check sputum , on levofloxacin, switched to po ID evaluation appreciated. dvt prophylaxis dc planning Subjective Interval Events: less short of breath Allergies: Coded Allergies: No Known Allergies (Unverified , 03/14/15) Objective Last 24 Hour Vital Signs Date Time Temp Pulse Resp B/P (MAP) Pulse Ox O2 Delivery O2 Flow Rate FiO2 09/29/17 08:00 80 09/29/17 08:00 96.6 77 19 129/87 95 Room Air 96.6 09/29/17 08:00 129/87 09/29/17 07:49 Room Air 21 09/29/17 07:49 82 18 Room Air 21 09/29/17 07:49 Room Air 21 09/29/17 04:00 97.2 72 22 110/72 94 Room Air 97.2 09/29/17 04:00 71 09/29/17 03:36 Room Air 21 09/29/17 03:36 Room Air 21 09/29/17 00:00 89 09/29/17 00:00 96.4 79 20 134/75 96 Room Air 96.4 09/28/17 23:37 Room Air 21 09/28/17 23:36 Room Air 21 09/28/17 20:00 107 09/28/17 20:00 97.7 70 18 123/72 93 Room Air 97.7 09/28/17 19:40 88 16 96 Room Air 21 09/28/17 19:30 80 20 Room Air 21 09/28/17 19:30 84 16 93 Room Air 21 09/28/17 16:00 97.3 70 18 120/76 95 Room Air 97.3 09/28/17 16:00 114 09/28/17 15:11 86 16 99 Room Air 21 09/28/17 15:00 80 16 94 Room Air 21 Intake and Output 09/28/17 09/29/17 19:00 07:00 Intake Total 195 ml Balance 195 ml Intake Oral 195 ml # Voids 3 Objective General Appearance: WD/WN Lines, tubes and drains: peripheral HEENT: normocephalic, atraumatic Neck: non-tender, normal alignment Respiratory/Chest: chest wall non-tender, lungs clear, loud expiratory wheezing Breasts: no masses Cardiovascular/Chest: normal peripheral pulses Genitourinary/Rectal: normal genital exam Extremities: normal range of motion, normal inspection, non-pitting Laboratory Tests 09/29/17 06:20: White Blood Count 11.2H, Red Blood Count 4.11L, Hemoglobin 12.6, Hematocrit 37.7 , Mean Corpuscular Volume 92, Mean Corpuscular Hemoglobin 30.8, Mean Corpuscular Hemoglobin Concent 33.6, Red Cell Distribution Width 12.3, Platelet Count 297, Mean Platelet Volume 6.0L, Neutrophils (%) (Auto) 51.0, Lymphocytes ( %) (Auto) 38.2, Monocytes (%) (Auto) 9.9, Eosinophils (%) (Auto) 0.6, Basophils (%) (Auto) 0.4, Sodium Level 141, Potassium Level 3.3L, Chloride Level 105, Carbon Dioxide Level 28, Anion Gap 8, Blood Urea Nitrogen 23H, Creatinine 0.8, Estimat Glomerular Filtration Rate , Glucose Level 101, Calcium Level 9.2, Phosphorus Level 3.0, Magnesium Level 2.0, Total Bilirubin 0.3, Aspartate Amino Transf (AST/SGOT) 14L, Alanine Aminotransferase (ALT/SGPT) 21, Alkaline Phosphatase 63, Total Protein 6.4, Albumin 3.0L, Globulin 3.4, Albumin/Globulin Ratio 0.9L Current Medications Medications (Trade) Dose Ordered Sig/Carmen Route PRN Reason Start Time Stop Time Status Last Admin Dose Admin Albuterol/ Ipratropium (Albuterol/ Ipratropium) 3 ml Q4HRT HHN 09/28/17 15:00 10/03/17 14:59 09/28/17 20:40 Benazepril HCl (Lotensin) 10 mg DAILY ORAL 09/28/17 09:00 10/24/17 08:59 09/29/17 08:00 Dextrose (Dextrose 50%) STAT PRN IV Hypoglycemia 09/27/17 12:45 10/23/17 12:44 Levetiracetam (Keppra) 250 mg DAILY ORAL 09/28/17 09:00 10/24/17 08:59 09/29/17 08:01 Levetiracetam (Keppra) 500 mg QHS ORAL 09/27/17 21:00 10/23/17 22:29 09/28/17 11:05 Levofloxacin (Levaquin) 750 mg Q24H ORAL 09/29/17 14:00 10/06/17 23:59 Lorazepam (Ativan 2mg/ml 1ml) 0.5 mg Q4H PRN IV For Anxiety 09/27/17 12:45 09/30/17 12:44 Methylprednisolone Sodium Succinate (Solu-MEDROL) 60 mg DAILY IV 09/28/17 09:00 10/24/17 00:29 09/29/17 08:00 Morphine Sulfate (Morphine Sulfate) 2 mg Q4H PRN IVP Severe Pain (Pain Scale 7-10) 09/27/17 14:30 09/30/17 18:29 Nitroglycerin (Ntg) 0.4 mg Q5M X 3 DOSES PRN SL Prn Chest Pain 09/27/17 12:45 10/23/17 20:59 Ondansetron HCl (Zofran) 4 mg Q6H PRN IVP Nausea & Vomiting 09/27/17 12:45 10/23/17 12:44 Promethazine HCl/ Codeine (Phenergan with Codeine) 5 ml Q6H PRN ORAL cough 09/27/17 12:45 10/23/17 12:44 Rivaroxaban (Xarelto) 15 mg DAILY ORAL 09/28/17 09:00 10/24/17 08:59 09/29/17 08:00 Temazepam (Restoril) 15 mg HSPRN PRN ORAL Insomnia 09/27/17 21:00 09/30/17 20:59 Theophylline (Danilo-Dur) 100 mg EVERY 12 HOURS ORAL 09/27/17 21:00 10/23/17 21:59 09/29/17 08:00 MATTHEW AARON Sep 29, 2017 12:53
[2017-09-29 16:00] VITALS: BP 172/74
[2017-09-30] MEDS ORDERED: MEDROL4 MG ORAL (14:52)
--- NOTE | 2017-09-30 14:53 | Discharge Summary ---
Discharge Summary Hospital Course Date of Admission Sep 23, 2017 at 19:10 Date of Discharge Sep 29, 2017 at 19:35 Admitting Diagnosis SHORTNESS OF BREATH, RESPIRATORY DISTRESS HPI Sara Sheriff is a 86 year old female who was admitted on Sep 23, 2017 at 19 :10 for Shortness Of Breath,Respiratory Distress Hospital Course dc summary #[id number] Discharge Medications New Medications: Methylprednisolone* (Medrol*) 4 Mg Tablet 4 MG ORAL DAILY, #10 TAB 0 Refills Theophylline (Theodur*) 100 Mg Tab.er.12h 100 MG ORAL EVERY 12 HOURS for 30 Days, TAB Continued Medications: Acetaminophen* (Acetaminophen 325MG Tablet*) 325 Mg Tab 650 MG ORAL Q6H PRN for Mild Pain/Temp > 100.5, #60 TAB Benazepril Hcl* (Benazepril Hcl*) 10 Mg Tablet 10 MG ORAL DAILY, TAB Brimonidine Tartrate (Alphagan P) 5 Ml Drops 5 ML OP, ML Brinzolamide (Azopt) 10 Ml Drops.susp 10 ML OP DAILY Levetiracetam (Keppra) 500 Mg Tablet 500 MG ORAL HS, #60 TAB 0 Refills Multivitamin With Minerals (Multivitamins With Minerals*) 1 Each Tablet 1 TAB ORAL DAILY, TAB Pilocarpine (Pilocarpine HCl) 15 Ml Drops 1 DROP OP, ML Rivaroxaban (Xarelto*) 10 Mg Tablet 15 MG ORAL DAILY, #30 TAB 0 Refills Timolol (Betimol) 5 Ml Drops 5 ML OP, ML Travoprost (Travatan Z) 5 Ml Drops 5 ML OP, ML Discontinued Medications: Levetiracetam (Keppra) 250 Mg Tablet 250 MG ORAL DAILY for seizure disorder, TAB 0 Refills Discharge Condition Upon Discharge: stable Discharge Disposition Patient was discharged to SNF/Subacute Facility(03) Discharge Diagnoses: Discharge Instructions Discharge Instructions Special Instructions I have been assigned to complete a D/C Summary on this account. I was not involved in the patient management Rebecca Menezes NP (Vanchtein) Sep 30, 2017 14:53
--- NOTE | 2017-10-01 03:15 | Discharge Summary 2 SIG ---
DATE OF ADMISSION: 09/23/2017 DATE OF DISCHARGE: 09/29/2017 REASON FOR ADMISSION: 86 years old female with past medical history significant for hypertension, seizure disorder, CVA with right-sided weakness, congestive heart failure, history of hyperlipidemia, history of DVT, dementia, and meningioma, status post resection, presented to the emergency department with shortness of breath and wheezing. She was given nebulizing treatment with bronchodilators by paramedics. O2 saturation initially was low as per coat repair inspector, but improved with the bronchodilator treatment. Upon arrival to ED, the patient refused all breathing treatments. Pulse oximetry improved. She denied fever or chills. She denied chest pain. Vital signs were stable, afebrile, no leukocytosis. Troponin negative. Pro BNP- 67. Lactic acid -1.0. Chest x-ray revealed no acute cardiopulmonary pathology. The patient admitted with respiratory distress, bronchitis, viral syndrome, hypertension, and history of cerebrovascular accident. HOSPITAL COURSE: The patient admitted. Pulmonology, Cardiology, and Infectious Disease consults were requested. Supplemental oxygen provided as needed to keep pulse oximetry above 92%. Pulmonary toilet was provided with bronchodilator around the clock and as needed. The patient started on empiric antibiotics. Infectious Disease closely followed. Influenza screen test was negative. Blood culture were negative. The patient was unable to produce any sputum since cough was nonproductive. Antitussives provided as needed. The patient was on short course of low dose steroids. Trial of theophylline initiated. Followup chest x-ray also revealed no acute cardiopulmonary pathology. Echocardiogram revealed preserved ejection fraction of 60% to 65%, right ventricular systolic pressure of 28. Per Cardiology, the patient had no evidence of acute coronary syndrome, which confirmed by negative troponin x2 and no acute ischemic changes on EKG. The patient had no evidence of congestive heart failure exacerbation neither clinically nor by laboratories. Pro BNP was within normal limits. DVT prophylaxis provided. Xarelto continued. Seizure precautions maintained. Keppra continued. Blood pressure was managed with FRANCISCO inhibitor and remained stable. Infectious Disease cleared for discharge back to facility with recommendations to keep patient off antibiotics( s/p empiric treatment in hospital). The patient will need to complete oral steroids course at the facility. DISCHARGE DIAGNOSES: 1. Bronchitis. 2. Respiratory distress. 3. Bronchospasm. 4. Hypertension. 5. History of cerebrovascular accident. 6. Seizure disorder. 7. Hyperlipidemia. 8. History of deep vein thrombosis. 9. Dementia. DISCHARGE MEDICATIONS: See medication reconciliation list. DISCHARGE INSTRUCTIONS: The patient discharged to alf facility. FOLLOWUP: Follow up with medical doctor at the facility. Agus Carvajal M.D. I have been assigned to dictate discharge summary on this account and I was not involved in the patient's management. Rebecca KyleHudson River State HospitalIvania Friedman DR: PIERRE JOB#: [id number] CC: CAROLYN
--- NOTE | 2017-10-01 20:21 | Cardiology Report ---
APPROVED REPORT EKG Measurement Heart [id number] NH [id number] [id number] Sinus rhythm with occasional premature ventricular complexes Otherwise normal ECG
== END 2017-09-29 19:35 | DRG 202 ==
LOC: EDBD 18:18 → EMR 18:59 → 2E 19:10 → EDBEDREQ 20:40 → 4W 09-25 17:31 → 2E 09-27 12:30
DX: J40 Bronchitis, not specified as acute or chronic (principal); J18.9 Pneumonia, unspecified organism; R06.03 Acute respiratory distress; I69.351 Hemiplegia and hemiparesis following cerebral infarction affecting right dominant side; I10 Essential (primary) hypertension; B34.9 Viral infection, unspecified; G40.909 Epilepsy, unspecified, not intractable, without status epilepticus; H40.9 Unspecified glaucoma; Z86.718 Personal history of other venous thrombosis and embolism; Z79.01 Long term (current) use of anticoagulants; J98.01 Acute bronchospasm; E78.5 Hyperlipidemia, unspecified; F03.90 Unspecified dementia, unspecified severity, without behavioral disturbance, psychotic disturbance, mood disturbance, and anxiety; M81.0 Age-related osteoporosis without current pathological fracture
CPT/HCPCS: 36415; 71045; 80048; 80053; 80299; 82550; 82553; 83605; 83735; 83880; 84100; 84484; 85025; 85610; 85651; 85730; 86710; 87040; 93005; 93306; 94640; 94664; 99285; J7620; J8499